=== PATIENT | male | born 1940 | race Caucasian/White ===

== ENCOUNTER 2016-04-06 11:02 | Inpatient (IN) | payer OTHER, MEDICARE ==
[2016-04-06] VITALS (10 sets, daily range): BP systolic 86–117; BP diastolic 46–78
[~2016-04-06] VITALS: Ht 188 cm; Wt 116.6 kg
[~2016-04-06 11:02] MED LIST: ADULT LOW DOSE81 M1 PO; ADVIL200 MG PO; ALDACTONE25 MG PO; AMBIEN5 MG PO; AUGMENTIN875 MG PO; B-50 COMPLEX1 EACH PO; BACTRIM,SEPT1 TABLET PO; CIPROFLOXACIN500 M1 PO; COUMADIN,JANTOVE4 MG PO; COUMADIN1 MG PO; COUMADIN2 MG PO; COUMADIN2.5 MG PO; COUMADIN3 MG PO; COZAAR50 MG PO; DAILY VALUE1 EACH PO; DOCUSATE SODIU100 MG PO; DULCOLAX10 MG PR; DUONEB 2.5-0.5 M3 ML AEROSOL; ENDOCET 5-3251 EACH PO; FAMOTIDINE20 MG PO; FINASTERIDE5 MG PO; FLEET ENEMA-AD118 ML PR; FUROSEMIDE40 MG PO; GINSENG250 MG PO; IPRATROPIU0.2 MG/1 M IH; KEFLEX500 MG PO; KENALOG,ARISTOC80 G1 TP; KENALOG,ARISTOC80 GM TP; LASIX40 MG PO; LEVOFLOXACIN500 MG PO; LO-DOSE ASPIRIN81 M1 PO; LOPRESSOR50 MG PO; LORAZEPAM0.5 MG PO; MORPHINE SULFAT15 MG PO; NIZORAL 2% CREA15 GM TP; NIZORAL SHAMPO120 ML TP; OXYCODONE HCL5 MG PO; PERCOCET 5/31 TABLET PO; PHILLIPS'400 MG/5 M PO; POLYETHYLENE GL17 GM PO; PROSCAR5 MG PO; PROVENTIL HFA6.7 GM IH; PROVENTIL,2.5 MG/3 M IH; ROXICODONE5 MG PO; SELSUN BLUE MO207 ML TP; SILVER SULFADIA50 GM TP; SIMVASTATIN5 MG; SINGULAIR10 MG PO; TYLENOL EXTRA500 MG PO; TYLENOL REGULA325 MG PO; VALIUM5 MG PO; VITAMIN B-122500 MCG SL; ZANTAC150 MG PO; ZESTRIL,PRINIVIL5 MG PO; ZOCOR40 MG PO; ZOLOFT50 MG PO; ZOLPIDEM TARTRAT5 MG PO
[2016-04-06 11:59] LABS: EOSINOPHIL (%) 0.2 % (0-5); HEMATOCRIT 37.6 % (38.0-50.0); IMMATURE GRANULOCYTE (%) 0.2 % (0.0-0.7); IMMATURE GRANULOCYTE COUNT 0.2 K/uL; LYMPHOCYTE COUNT 0.6 K/uL (1.0-2.8); MCV 88.3 FL (86-99); MEAN PLAT.VOLUME 10.4 uM^3 (9.0-12.4); MONOCYTE (%) 12.9 % (3-12); MONOCYTE COUNT 1.4 K/uL (0-0.8); NEUTROPHIL COUNT 8.5 K/uL (1.8-6.4); PLATELET COUNT 121 K/uL (156-360); RBC DIS.WIDTH-CV 15.1 % (11.8-14.6); RBC DIS.WIDTH-SD 48.1 % (39-53); RED BLOOD COUNT 4.26 M/uL (4.00-5.50); WHITE BLOOD COUNT 10.5 K/uL (4.1-10.2)
[2016-04-06 12:09] LABS: CHLORIDE 95 mEq/L (99-109); SODIUM 135 mEq/L (136-147)
[2016-04-06 12:09] LABS: ADD MIUA? YES; BILIRUBIN MODERATE; BLOOD LARGE; GLUCOSE (STRIP) NEGATIVE; KETONES NEGATIVE; LEUKOCYTES LARGE; NITRITE POSITIVE; PROTEIN (STRIP) 100; SPECIFIC GRAVITY 1.018 (1.000-1.030)
[2016-04-06 12:11] LABS: GLUCOSE 110 mg/dL (70-99)
[2016-04-06 12:13] LABS: ANION GAP 18 MEQ/L (2-14); TOTAL BILIRUBIN 6.9 mg/dL (0.0-1.0)
[2016-04-06 12:15] LABS: COLOR AMBER ((YELLOW))
[2016-04-06 12:15] LABS: ALKALINE PHOSPHATASE 129 IU/L (3-129); GFR ESTIMATE (CALCULATED) 58 mL/min/
[2016-04-06 12:16] LABS: UREA NITROGEN (BUN) 26 mg/dL (9-23)
[2016-04-06 12:18] LABS: LIPASE 14 U/L (1.0-51.0)
[2016-04-06 12:25] LABS: TROP-I INTERPRETATION INDETERMINATE; TROPONIN-I 0.45 ng/mL (0.0-0.30)
[2016-04-06 12:54] LABS: ICTOTEST POSITIVE
[2016-04-06 12:55] LABS: EPITHELIAL CELLS RARE; RED BLOOD CELLS 0-5 /HPF (0-5); SMALL ROUND CELL NONE SEEN; UCUL ADDED? YES; YEAST-LIKE CELL NONE SEEN
[2016-04-06] MEDS ORDERED: COUMADIN2 MG PO (13:07)
[2016-04-06] MEDS ORDERED: FLOMAX0.4 MG PO (13:07)
[2016-04-06] MEDS ORDERED: PERCOCET 5/31 TABLET PO (13:08)
[2016-04-06 13:14] LABS: BACTERIA 3+; CASTS PRESENT /LPF; MUCUS NONE SEEN
[2016-04-06 13:15] LABS: CRYSTALS NONE SEEN; PATHOLOGICAL CAST NONE SEEN
[2016-04-06] MEDS ORDERED: OCEAN NASAL 0.645 ML BOTH NARES (13:43)
[2016-04-06 15:51] LABS: INTER. NORMALIZED RATIO 2.2; PROTHROMBIN TIME 22.7 (9.2-11.2); PTT 38.5 (25-32)
[2016-04-06 16:06] LABS: MAGNESIUM 1.8 mg/dL (1.3-2.7)
[2016-04-06 16:13] LABS: DIRECT BILIRUBIN 3.9 mg/dL (0.0-0.3); URIC ACID 8.7 mg/dL (3.1-9.2)
[2016-04-06 17:02] LABS: METH RESISTANT S AUREUS PCR POSITIVE (NEGATIVE)
[2016-04-06 17:04] LABS: PROBE CHECK PASS
[2016-04-06 22:21] LABS: TROP-I INTERPRETATION INDETERMINATE; TROPONIN-I 0.41 ng/mL (0.0-0.30)
[2016-04-07] VITALS (12 sets, daily range): BP systolic 84–128; BP diastolic 51–82
[2016-04-07 05:54] LABS: EOSINOPHIL (%) 2.4 % (0-5); EOSINOPHIL COUNT 0.2 K/uL (0-0.3); HEMATOCRIT 34.1 % (38.0-50.0); IMMATURE GRANULOCYTE (%) 0.1 % (0.0-0.7); LYMPHOCYTE COUNT 0.9 K/uL (1.0-2.8); MCH 29.8 PG (29.0-34.0); MCHC 33.7 G/DL (30.0-36.0); MCV 88.3 FL (86-99); MEAN PLAT.VOLUME 10.5 uM^3 (9.0-12.4); MONOCYTE (%) 13.2 % (3-12); NEUTROPHIL (%) 72.2 % (45-76); NEUTROPHIL COUNT 5.5 K/uL (1.8-6.4); PLATELET COUNT 111 K/uL (156-360); RBC DIS.WIDTH-CV 15.5 % (11.8-14.6); RBC DIS.WIDTH-SD 49.8 % (39-53); RED BLOOD COUNT 3.86 M/uL (4.00-5.50); WHITE BLOOD COUNT 7.6 K/uL (4.1-10.2)
[2016-04-07 06:09] LABS: INTER. NORMALIZED RATIO 2.5; PROTHROMBIN TIME 26.2 (9.2-11.2)
[2016-04-07 06:22] LABS: TROP-I INTERPRETATION INDETERMINATE; TROPONIN-I 0.34 ng/mL (0.0-0.30)
[2016-04-07 06:24] LABS: ALKALINE PHOSPHATASE 94 IU/L (3-129); ANION GAP 13 MEQ/L (2-14); CHLORIDE 97 MEQ/L (99-109); DIRECT BILIRUBIN 3.6 mg/dL (0.0-0.3); GFR ESTIMATE (CALCULATED) 53 mL/min/; GLUCOSE 96 mg/dL (70-99); MAGNESIUM 1.6 mg/dl (1.3-2.7); POTASSIUM 2.9 MEQ/L (3.7-5.4); SAMPLE HEMOLYSIS CHECK 0; SAMPLE ICTERIC CHECK 2; SAMPLE LIPEMIA CHECK 0; SODIUM 136 MEQ/L (136-147); TOTAL BILIRUBIN 6.6 MG/DL (0.0-1.0); UREA NITROGEN (BUN) 27 mg/dL (9-23)
[2016-04-08 03:24] VITALS: BP 123/86
[2016-04-08 06:02] LABS: EOSINOPHIL (%) 2.6 % (0-5); EOSINOPHIL COUNT 0.2 K/uL (0-0.3); IMMATURE GRANULOCYTE (%) 0.3 % (0.0-0.7); LYMPHOCYTE COUNT 1.2 K/uL (1.0-2.8); MCH 29.3 PG (29.0-34.0); MCHC 33.1 G/DL (30.0-36.0); MCV 88.6 FL (86-99); MEAN PLAT.VOLUME 10.4 uM^3 (9.0-12.4); MONOCYTE (%) 14.4 % (3-12); MONOCYTE COUNT 1.3 K/uL (0-0.8); NEUTROPHIL (%) 69.3 % (45-76); NEUTROPHIL COUNT 6.4 K/uL (1.8-6.4); PLATELET COUNT 130 K/uL (156-360); RBC DIS.WIDTH-CV 15.4 % (11.8-14.6); RBC DIS.WIDTH-SD 49.4 % (39-53); WHITE BLOOD COUNT 9.2 K/uL (4.1-10.2)
[2016-04-08 06:37] LABS: INTER. NORMALIZED RATIO 2.5; PROTHROMBIN TIME 26.2 (9.2-11.2)
[2016-04-08 06:54] LABS: ALKALINE PHOSPHATASE 98 IU/L (3-129); ANION GAP 13 MEQ/L (2-14); CHLORIDE 98 MEQ/L (99-109); DIRECT BILIRUBIN 3.5 mg/dL (0.0-0.3); GFR ESTIMATE (CALCULATED) 45 mL/min/; GLUCOSE 98 mg/dL (70-99); POTASSIUM 3.4 MEQ/L (3.7-5.4); SAMPLE HEMOLYSIS CHECK 0; SAMPLE ICTERIC CHECK 2; SAMPLE LIPEMIA CHECK 0; SODIUM 137 MEQ/L (136-147); TOTAL BILIRUBIN 6.3 MG/DL (0.0-1.0); UREA NITROGEN (BUN) 33 mg/dL (9-23)
[2016-04-08 07:00] LABS: MAGNESIUM 1.9 mg/dl (1.3-2.7)
[2016-04-08 08:33] VITALS: BP 114/82
[2016-04-08 12:17] VITALS: BP 115/90
[2016-04-08 17:02] VITALS: BP 110/60
[2016-04-08 23:45] VITALS: BP 126/76
[2016-04-09 06:17] LABS: EOSINOPHIL (%) 4.1 % (0-5); EOSINOPHIL COUNT 0.3 K/uL (0-0.3); HEMATOCRIT 38.9 % (38.0-50.0); IMMATURE GRANULOCYTE (%) 0.4 % (0.0-0.7); INTER. NORMALIZED RATIO 2.5; LYMPHOCYTE COUNT 1.2 K/uL (1.0-2.8); MCH 29.9 PG (29.0-34.0); MCHC 33.7 G/DL (30.0-36.0); MCV 88.8 FL (86-99); MEAN PLAT.VOLUME 10.1 uM^3 (9.0-12.4); MONOCYTE (%) 15.9 % (3-12); MONOCYTE COUNT 1.3 K/uL (0-0.8); NEUTROPHIL (%) 65.1 % (45-76); NEUTROPHIL COUNT 5.4 K/uL (1.8-6.4); PLATELET COUNT 125 K/uL (156-360); PROTHROMBIN TIME 26.1 (9.2-11.2); RBC DIS.WIDTH-CV 15.5 % (11.8-14.6); RED BLOOD COUNT 4.38 M/uL (4.00-5.50); WHITE BLOOD COUNT 8.4 K/uL (4.1-10.2)
[2016-04-09 06:55] LABS: ANION GAP 10 MEQ/L (2-14); CHLORIDE 100 MEQ/L (99-109); GFR ESTIMATE (CALCULATED) 45 mL/min/; GLUCOSE 97 mg/dL (70-99); MAGNESIUM 1.8 mg/dl (1.3-2.7); POTASSIUM 3.6 MEQ/L (3.7-5.4); SAMPLE HEMOLYSIS CHECK 0; SAMPLE ICTERIC CHECK 1; SAMPLE LIPEMIA CHECK 0; SODIUM 140 MEQ/L (136-147); UREA NITROGEN (BUN) 35 mg/dL (9-23)
[2016-04-09 08:00] VITALS: BP 120/76
[2016-04-09 12:07] VITALS: BP 102/64
[2016-04-09 16:00] VITALS: BP 119/75
[2016-04-09 19:57] VITALS: BP 124/76
[2016-04-09 23:32] VITALS: BP 105/74
[2016-04-10] VITALS (7 sets, daily range): BP systolic 107–158; BP diastolic 62–86
[2016-04-10 06:58] LABS: INTER. NORMALIZED RATIO 2.6; PROTHROMBIN TIME 27.5 (9.2-11.2)
[2016-04-10 07:08] LABS: ANION GAP 9 MEQ/L (2-14); CHLORIDE 100 MEQ/L (99-109); GFR ESTIMATE (CALCULATED) 45 mL/min/; GLUCOSE 93 mg/dL (70-99); MAGNESIUM 1.9 mg/dl (1.3-2.7); POTASSIUM 3.7 MEQ/L (3.7-5.4); SAMPLE HEMOLYSIS CHECK 0; SAMPLE ICTERIC CHECK 1; SAMPLE LIPEMIA CHECK 0; SODIUM 140 MEQ/L (136-147); UREA NITROGEN (BUN) 35 mg/dL (9-23)
[2016-04-11] VITALS (8 sets, daily range): BP systolic 103–142; BP diastolic 66–80
[2016-04-11 06:50] LABS: INTER. NORMALIZED RATIO 2.6; PROTHROMBIN TIME 26.9 (9.2-11.2)
[2016-04-11 07:12] LABS: ANION GAP 9 MEQ/L (2-14); CHLORIDE 94 MEQ/L (99-109); GFR ESTIMATE (CALCULATED) 40 mL/min/; GLUCOSE 94 mg/dL (70-99); MAGNESIUM 1.9 mg/dl (1.3-2.7); SAMPLE HEMOLYSIS CHECK 0; SAMPLE ICTERIC CHECK 1; SAMPLE LIPEMIA CHECK 0; SODIUM 136 MEQ/L (136-147); UREA NITROGEN (BUN) 37 mg/dL (9-23)
[2016-04-12 03:00] VITALS: BP 115/60
[2016-04-12 07:15] LABS: INTER. NORMALIZED RATIO 2.4; PROTHROMBIN TIME 25.2 (9.2-11.2)
[2016-04-12 07:30] LABS: ANION GAP 9 MEQ/L (2-14); CHLORIDE 97 MEQ/L (99-109); GFR ESTIMATE (CALCULATED) 42 mL/min/; GLUCOSE 93 mg/dL (70-99); POTASSIUM 3.6 MEQ/L (3.7-5.4); SAMPLE HEMOLYSIS CHECK 0; SAMPLE ICTERIC CHECK 1; SAMPLE LIPEMIA CHECK 0; SODIUM 140 MEQ/L (136-147); UREA NITROGEN (BUN) 35 mg/dL (9-23)
[2016-04-12 08:00] VITALS: BP 140/65
[2016-04-12 11:29] VITALS: BP 104/62
[2016-04-12 14:12] LABS: ALKALINE PHOSPHATASE 108 IU/L (3-129); DIRECT BILIRUBIN 2.5 mg/dL (0.0-0.3)
[2016-04-12 14:16] LABS: TOTAL BILIRUBIN 4.3 MG/DL (0.0-1.0)
[2016-04-12 16:43] VITALS: BP 101/70
[2016-04-12 21:48] LABS: URIC ACID 8.1 mg/dL (3.1-9.2)
[2016-04-12 23:15] VITALS: BP 96/58
[2016-04-13 03:57] VITALS: BP 118/67
[2016-04-13 05:32] LABS: INTER. NORMALIZED RATIO 2.3
[2016-04-13 05:48] LABS: ANION GAP 8 MEQ/L (2-14); CHLORIDE 97 MEQ/L (99-109); GFR ESTIMATE (CALCULATED) 42 mL/min/; GLUCOSE 93 mg/dL (70-99); POTASSIUM 3.7 MEQ/L (3.7-5.4); SAMPLE HEMOLYSIS CHECK 0; SAMPLE ICTERIC CHECK 1; SAMPLE LIPEMIA CHECK 0; SODIUM 138 MEQ/L (136-147); UREA NITROGEN (BUN) 36 mg/dL (9-23)
[2016-04-13 06:03] LABS: ALKALINE PHOSPHATASE 105 IU/L (3-129); DIRECT BILIRUBIN 2.3 mg/dL (0.0-0.3)
[2016-04-13 08:48] VITALS: BP 104/59
[2016-04-13 12:12] VITALS: BP 111/80
[2016-04-13 16:00] VITALS: BP 99/61
[2016-04-14] VITALS: BP 101/60
[2016-04-14 04:30] VITALS: BP 116/67
[2016-04-14 05:13] LABS: INTER. NORMALIZED RATIO 2.1; PROTHROMBIN TIME 22.3 (9.2-11.2)
[2016-04-14 05:14] LABS: CHLORIDE 97 mEq/L (99-109); POTASSIUM 3.6 mEq/L (3.7-5.4); SODIUM 138 mEq/L (136-147)
[2016-04-14 05:17] LABS: GLUCOSE 98 mg/dL (70-99)
[2016-04-14 05:18] LABS: ANION GAP 10 MEQ/L (2-14)
[2016-04-14 05:20] LABS: GFR ESTIMATE (CALCULATED) 40 mL/min/
[2016-04-14 05:21] LABS: UREA NITROGEN (BUN) 36 mg/dL (9-23)
[2016-04-14 08:16] VITALS: BP 144/74
[2016-04-14] MEDS ORDERED: DUONEB 2.5-0.5 M3 ML AEROSOL (12:59)
[2016-04-14] MEDS ORDERED: SPIRONOLACTONE25 MG PO (12:59)
[2016-04-14] MEDS ORDERED: MIDODRINE HCL5 MG PO (12:59)
[2016-04-14] MEDS ORDERED: Zeasorb Antifungal T TP (13:01)
[2016-04-14] MEDS ORDERED: POLYETHYLENE GL17 GM PO (13:01)
[2016-04-14] MEDS ORDERED: BUMETANIDE1 MG PO (13:01)
[2016-04-14] MEDS ORDERED: MAG-OXIDE400 MG PO (13:01)
[2016-04-14] MEDS ORDERED: AMBIEN5 MG PO (13:02)
[2016-04-14] MEDS ORDERED: ENDOCET 5-3251 EACH PO (13:02)
[2016-04-14] MEDS ORDERED: LORAZEPAM0.5 MG PO (13:02)
[2016-04-14] MEDS ORDERED: K-DUR10 MEQ PO (14:40)
== END 2016-04-14 15:40 | DRG 698 ==
LOC: EME 11:02 → 5EAST 12:54 → EDOF 12:54 → 4WEST 12:54 → EDOF 13:40 → 4WEST 14:53 → 5EAST 04-07 19:31
PROVIDERS: Emergency Medicine; Family Medicine; Internal Medicine; Internal Medicine Gastroenterology; Internal Medicine Nephrology
DX: T83.511A Infection and inflammatory reaction due to indwelling urethral catheter, initial encounter (principal); N39.0 Urinary tract infection, site not specified; B96.20 Unspecified Escherichia coli [E. coli] as the cause of diseases classified elsewhere; A41.9 Sepsis, unspecified organism; I50.43 Acute on chronic combined systolic (congestive) and diastolic (congestive) heart failure; N17.9 Acute kidney failure, unspecified; Z16.10 Resistance to unspecified beta lactam antibiotics; R17 Unspecified jaundice; L03.119 Cellulitis of unspecified part of limb; E87.3 Alkalosis; T50.2X5A Adverse effect of carbonic-anhydrase inhibitors, benzothiadiazides and other diuretics, initial encounter; E87.6 Hypokalemia; N18.3 Chronic kidney disease, stage 3 (moderate); R33.9 Retention of urine, unspecified; I48.2 Chronic atrial fibrillation; I42.0 Dilated cardiomyopathy; Z68.41 Body mass index [BMI] 40.0-44.9, adult; J44.9 Chronic obstructive pulmonary disease, unspecified; K59.00 Constipation, unspecified; G47.33 Obstructive sleep apnea (adult) (pediatric); E66.01 Morbid (severe) obesity due to excess calories; Z95.810 Presence of automatic (implantable) cardiac defibrillator; I87.8 Other specified disorders of veins; I95.89 Other hypotension; M19.90 Unspecified osteoarthritis, unspecified site; E78.5 Hyperlipidemia, unspecified; I35.0 Nonrheumatic aortic (valve) stenosis; Z96.653 Presence of artificial knee joint, bilateral; Z87.891 Personal history of nicotine dependence; R31.29 Other microscopic hematuria; I89.0 Lymphedema, not elsewhere classified; G40.909 Epilepsy, unspecified, not intractable, without status epilepticus; G89.29 Other chronic pain; M54.9 Dorsalgia, unspecified; Z79.01 Long term (current) use of anticoagulants
CPT/HCPCS: 71010; 80048; 80053; 80069; 80076; 81003; 82248; 83010 90; 83605; 83690; 83735; 84484; 84550; 85025; 85027; 85610; 85730; 87040; 87077; 87081; 87086; 87186; 87641; 93975; 94640; 94799; 97530 GO; 97530 GP; 99202; 99281; 99285; J1335; J1940; J1956; J3475; J3480; J7030; J7050; P9047; S0028

== ENCOUNTER 2016-07-12 13:15 | Inpatient (IN) | payer OTHER, MEDICARE ==
[~2016-07-12] VITALS: Ht 190.5 cm; Wt 114.9 kg
[~2016-07-12 13:15] MED LIST changes: +BUMETANIDE1 MG PO; +FLOMAX0.4 MG PO; +K-DUR10 MEQ PO; +MAG-OXIDE400 MG PO; +MIDODRINE HCL5 MG PO; +OCEAN NASAL 0.645 ML BOTH NARES; +SPIRONOLACTONE25 MG PO; +Zeasorb Antifungal T TP
[2016-07-12 14:00] LABS: HEMATOCRIT 45.3 % (38.0-50.0); MCH 29.2 PG (29.0-34.0); MCHC 32.7 G/DL (30.0-36.0); MCV 89.3 FL (86-99); MEAN PLAT.VOLUME 9.9 uM^3 (9.0-12.4); PLATELET COUNT 160 K/uL (156-360); RBC DIS.WIDTH-CV 16.1 % (11.8-14.6); RBC DIS.WIDTH-SD 52.5 % (39-53); RED BLOOD COUNT 5.07 M/uL (4.00-5.50); WHITE BLOOD COUNT 7.3 K/uL (4.1-10.2)
[2016-07-12 14:12] LABS: INTER. NORMALIZED RATIO 3.1; PROTHROMBIN TIME 32.8 (9.2-11.2); PTT 36.9 (25-32)
[2016-07-12 14:16] LABS: CHLORIDE 102 mEq/L (99-109); POTASSIUM 4.1 mEq/L (3.7-5.4); SODIUM 136 mEq/L (136-147)
[2016-07-12 14:17] LABS: GLUCOSE 111 mg/dL (70-99)
[2016-07-12 14:19] LABS: ANION GAP 11 MEQ/L (2-14)
[2016-07-12 14:21] LABS: GFR ESTIMATE (CALCULATED) 45 mL/min/
[2016-07-12 14:22] LABS: UREA NITROGEN (BUN) 38 mg/dL (9-23)
[2016-07-12 14:32] LABS: TROP-I INTERPRETATION NEGATIVE; TROPONIN-I 0.11 ng/mL (0.0-0.30)
[2016-07-12 15:00] LABS: ADD MIUA? YES; BILIRUBIN NEGATIVE; BLOOD NEGATIVE; COLOR YELLOW ((YELLOW)); GLUCOSE (STRIP) NEGATIVE; KETONES NEGATIVE; LEUKOCYTES NEGATIVE; NITRITE POSITIVE; PROTEIN (STRIP) NEGATIVE; SPECIFIC GRAVITY 1.009 (1.000-1.030)
[2016-07-12 15:38] LABS: BACTERIA RARE /HPF; EPITHELIAL CELLS RARE /HPF; HYALINE CASTS 20-30 /LPF; MUCUS TRACE /LPF; RED BLOOD CELLS 0-5 /HPF (0-5); UCUL ADDED? NO; WHITE BLOOD CELLS 0-5 /HPF (0-5)
[2016-07-12] MEDS ORDERED: COUMADIN3 MG PO (18:44)
[2016-07-12] MEDS ORDERED: COUMADIN2 MG PO (18:45)
[2016-07-12] MEDS ORDERED: K-DUR10 MEQ PO (18:46)
[2016-07-12] MEDS ORDERED: BUMETANIDE1 MG PO (18:47)
[2016-07-12] MEDS ORDERED: LIPITOR20 MG PO (18:48)
[2016-07-12] MEDS ORDERED: METHOCARBAMOL750 MG PO (18:48)
[2016-07-12 21:25] VITALS: BP 103/57
[2016-07-12 21:42] LABS: TROP-I INTERPRETATION NEGATIVE; TROPONIN-I 0.13 ng/mL (0.0-0.30)
[2016-07-12 22:26] VITALS: BP 120/86
[2016-07-13 06:07] LABS: MCH 28.8 PG (29.0-34.0); MCHC 32.9 G/DL (30.0-36.0); MCV 87.6 FL (86-99); MEAN PLAT.VOLUME 10.1 uM^3 (9.0-12.4); PLATELET COUNT 137 K/uL (156-360); RBC DIS.WIDTH-CV 15.9 % (11.8-14.6); RBC DIS.WIDTH-SD 51.1 % (39-53); RED BLOOD COUNT 4.68 M/uL (4.00-5.50); WHITE BLOOD COUNT 8.3 K/uL (4.1-10.2)
[2016-07-13 06:30] LABS: ALKALINE PHOSPHATASE 123 IU/L (3-129); ANION GAP 13 MEQ/L (2-14); CHLORIDE 99 MEQ/L (99-109); GFR ESTIMATE (CALCULATED) 49 mL/min/; GLUCOSE 101 mg/dL (70-99); POTASSIUM 3.5 MEQ/L (3.7-5.4); SAMPLE HEMOLYSIS CHECK 0; SAMPLE ICTERIC CHECK 1; SAMPLE LIPEMIA CHECK 0; SODIUM 136 MEQ/L (136-147); TOTAL BILIRUBIN 3.6 MG/DL (0.0-1.0); TROP-I INTERPRETATION NEGATIVE; TROPONIN-I 0.14 ng/mL (0.0-0.30); UREA NITROGEN (BUN) 36 mg/dL (9-23)
[2016-07-13 08:00] VITALS: BP 103/77
[2016-07-13 10:33] LABS: INTER. NORMALIZED RATIO 3.1
[2016-07-13 11:40] VITALS: BP 111/71
[2016-07-13 15:59] VITALS: BP 107/69
[2016-07-13 18:44] VITALS: BP 109/64
[2016-07-13 22:42] VITALS: BP 108/60
[2016-07-14 03:33] VITALS: BP 122/72
[2016-07-14 06:26] LABS: ANION GAP 11 MEQ/L (2-14); CHLORIDE 98 MEQ/L (99-109); GFR ESTIMATE (CALCULATED) 49 mL/min/; GLUCOSE 99 mg/dL (70-99); POTASSIUM 3.3 MEQ/L (3.7-5.4); SAMPLE HEMOLYSIS CHECK 0; SAMPLE ICTERIC CHECK 1; SAMPLE LIPEMIA CHECK 0; SODIUM 135 MEQ/L (136-147); UREA NITROGEN (BUN) 31 mg/dL (9-23)
[2016-07-14 06:34] LABS: PROTHROMBIN TIME 31.7 (9.2-11.2)
[2016-07-14 07:57] VITALS: BP 122/84
[2016-07-14 11:15] VITALS: BP 108/68
[2016-07-14 15:03] VITALS: BP 129/80
[2016-07-14 19:13] VITALS: BP 116/81
[2016-07-14 22:43] VITALS: BP 109/61
[2016-07-15] VITALS (7 sets, daily range): BP systolic 97–121; BP diastolic 64–81
[2016-07-15 06:33] LABS: EOSINOPHIL (%) 3.3 % (0-5); EOSINOPHIL COUNT 0.3 K/uL (0-0.3); HEMATOCRIT 44.6 % (38.0-50.0); IMMATURE GRANULOCYTE (%) 0.2 % (0.0-0.7); INSTRUMENT ABS NEUTROPHIL CT 5.6 K/uL; LYMPHOCYTE COUNT 1.8 K/uL (1.0-2.8); MCH 29.3 PG (29.0-34.0); MCHC 33.4 G/DL (30.0-36.0); MCV 87.8 FL (86-99); MEAN PLAT.VOLUME 9.7 uM^3 (9.0-12.4); MONOCYTE (%) 16.4 % (3-12); MONOCYTE COUNT 1.5 K/uL (0-0.8); NEUTROPHIL (%) 60.7 % (45-76); NEUTROPHIL COUNT 5.6 K/uL (1.8-6.4); PLATELET COUNT 160 K/uL (156-360); RBC DIS.WIDTH-CV 15.7 % (11.8-14.6); RBC DIS.WIDTH-SD 50.4 % (39-53); RED BLOOD COUNT 5.08 M/uL (4.00-5.50); WHITE BLOOD COUNT 9.2 K/uL (4.1-10.2)
[2016-07-15 06:57] LABS: ANION GAP 12 MEQ/L (2-14); CHLORIDE 97 MEQ/L (99-109); GFR ESTIMATE (CALCULATED) 58 mL/min/; GLUCOSE 97 mg/dL (70-99); SAMPLE HEMOLYSIS CHECK 0; SAMPLE ICTERIC CHECK 1; SAMPLE LIPEMIA CHECK 0; SODIUM 135 MEQ/L (136-147); UREA NITROGEN (BUN) 31 mg/dL (9-23)
[2016-07-15 06:58] LABS: POTASSIUM 4.6 MEQ/L (3.7-5.4)
[2016-07-15 07:19] LABS: INTER. NORMALIZED RATIO 2.8; PROTHROMBIN TIME 29.6 (9.2-11.2)
[2016-07-16 03:21] VITALS: BP 109/75
[2016-07-16 07:00] LABS: EOSINOPHIL COUNT 0.4 K/uL (0-0.3); HEMATOCRIT 41.3 % (38.0-50.0); IMMATURE GRANULOCYTE (%) 0.2 % (0.0-0.7); INSTRUMENT ABS NEUTROPHIL CT 4.8 K/uL; LYMPHOCYTE COUNT 1.8 K/uL (1.0-2.8); MCH 28.9 PG (29.0-34.0); MCHC 33.4 G/DL (30.0-36.0); MCV 86.6 FL (86-99); MEAN PLAT.VOLUME 9.9 uM^3 (9.0-12.4); MONOCYTE (%) 15.8 % (3-12); MONOCYTE COUNT 1.3 K/uL (0-0.8); NEUTROPHIL (%) 57.1 % (45-76); NEUTROPHIL COUNT 4.8 K/uL (1.8-6.4); PLATELET COUNT 163 K/uL (156-360); RBC DIS.WIDTH-CV 15.6 % (11.8-14.6); RBC DIS.WIDTH-SD 49.4 % (39-53); RED BLOOD COUNT 4.77 M/uL (4.00-5.50); WHITE BLOOD COUNT 8.4 K/uL (4.1-10.2)
[2016-07-16 07:23] LABS: ANION GAP 12 MEQ/L (2-14); CHLORIDE 99 MEQ/L (99-109); GFR ESTIMATE (CALCULATED) 53 mL/min/; GLUCOSE 91 mg/dL (70-99); POTASSIUM 3.8 MEQ/L (3.7-5.4); SAMPLE HEMOLYSIS CHECK 0; SAMPLE ICTERIC CHECK 1; SAMPLE LIPEMIA CHECK 0; SODIUM 133 MEQ/L (136-147); UREA NITROGEN (BUN) 38 mg/dL (9-23)
[2016-07-16 07:46] VITALS: BP 111/85
[2016-07-16 07:54] LABS: INTER. NORMALIZED RATIO 2.8; PROTHROMBIN TIME 29.5 (9.2-11.2)
[2016-07-16 11:09] VITALS: BP 99/69
== END 2016-07-16 15:29 | disposition home health service (06) | DRG 291 ==
LOC: EME 13:15 → 5EAST 17:31 → EDOF 17:31 → 5EAST 20:47
PROVIDERS: Emergency Medicine; Family Medicine; Internal Medicine Cardiovascular Disease
DX: I13.0 Hypertensive heart and chronic kidney disease with heart failure and stage 1 through stage 4 chronic kidney disease, or unspecified chronic kidney disease (principal); I50.43 Acute on chronic combined systolic (congestive) and diastolic (congestive) heart failure; N18.9 Chronic kidney disease, unspecified; I48.1 Persistent atrial fibrillation; R17 Unspecified jaundice; G89.29 Other chronic pain; E78.5 Hyperlipidemia, unspecified; J44.9 Chronic obstructive pulmonary disease, unspecified; I42.0 Dilated cardiomyopathy; G47.33 Obstructive sleep apnea (adult) (pediatric); I87.2 Venous insufficiency (chronic) (peripheral); E66.9 Obesity, unspecified; E87.6 Hypokalemia; R73.9 Hyperglycemia, unspecified; Z95.810 Presence of automatic (implantable) cardiac defibrillator; Z87.891 Personal history of nicotine dependence; Z96.653 Presence of artificial knee joint, bilateral; Z68.31 Body mass index [BMI] 31.0-31.9, adult; Z79.01 Long term (current) use of anticoagulants; Z79.82 Long term (current) use of aspirin
CPT/HCPCS: 71020; 80048; 80053; 80076; 81003; 83880; 84484; 85025; 85027; 85610; 85730; 93005; 94640; 94640 76; 99202; 99281; 99285; J1940

== ENCOUNTER 2016-07-19 12:22 | Inpatient (IN) | payer OTHER, MEDICARE ==
[~2016-07-19] VITALS: Ht 190.5 cm; Wt 108.5 kg
[~2016-07-19 12:22] MED LIST changes: +LIPITOR20 MG PO; +METHOCARBAMOL750 MG PO
[2016-07-19 13:46] LABS: ADD MIUA? YES; BILIRUBIN NEGATIVE; BLOOD SMALL; COLOR YELLOW ((YELLOW)); GLUCOSE (STRIP) NEGATIVE; KETONES NEGATIVE; LEUKOCYTES NEGATIVE; NITRITE POSITIVE; PROTEIN (STRIP) NEGATIVE; SPECIFIC GRAVITY 1.012 (1.000-1.030); UROBILINOGEN 0.2 MG/DL (0.2-1.0)
[2016-07-19 14:04] LABS: BACTERIA RARE /HPF; EPITHELIAL CELLS RARE /HPF; HYALINE CASTS TNTC /LPF; MUCUS TRACE /LPF; RED BLOOD CELLS 0-5 /HPF (0-5); UCUL ADDED? NO; WHITE BLOOD CELLS 0-5 /HPF (0-5)
[2016-07-19 14:12] LABS: HEMATOCRIT 42.3 % (38.0-50.0); MCH 29.3 PG (29.0-34.0); MCHC 33.3 G/DL (30.0-36.0); MCV 87.8 FL (86-99); MEAN PLAT.VOLUME 10.4 uM^3 (9.0-12.4); PLATELET COUNT 171 K/uL (156-360); RBC DIS.WIDTH-CV 15.9 % (11.8-14.6); RED BLOOD COUNT 4.82 M/uL (4.00-5.50); WHITE BLOOD COUNT 8.5 K/uL (4.1-10.2)
[2016-07-19 14:22] LABS: CHLORIDE 101 mEq/L (99-109); SODIUM 133 mEq/L (136-147)
[2016-07-19 14:23] LABS: GLUCOSE 87 mg/dL (70-99)
[2016-07-19 14:25] LABS: ANION GAP 14 MEQ/L (2-14); POTASSIUM 4.9 mEq/L (3.7-5.4)
[2016-07-19 14:27] LABS: GFR ESTIMATE (CALCULATED) 53 mL/min/
[2016-07-19 14:28] LABS: UREA NITROGEN (BUN) 43 mg/dL (9-23)
[2016-07-19 14:46] LABS: INTER. NORMALIZED RATIO 3.8; PROTHROMBIN TIME 40.8 (9.2-11.2)
[2016-07-19] MEDS ORDERED: WARFARIN SODIUM3 MG PO (17:58)
[2016-07-19] MEDS ORDERED: MAGNESIUM400 M1 PO (17:58)
[2016-07-19] MEDS ORDERED: WARFARIN SODIUM1 MG PO (17:59)
[2016-07-19 20:21] VITALS: BP 117/81
[2016-07-19 23:56] VITALS: BP 103/72
[2016-07-20 07:03] LABS: HEMATOCRIT 39.1 % (38.0-50.0); MCH 29.4 PG (29.0-34.0); MCHC 33.5 G/DL (30.0-36.0); MCV 87.7 FL (86-99); MEAN PLAT.VOLUME 9.8 uM^3 (9.0-12.4); PLATELET COUNT 141 K/uL (156-360); RBC DIS.WIDTH-CV 15.9 % (11.8-14.6); RBC DIS.WIDTH-SD 50.3 % (39-53); RED BLOOD COUNT 4.46 M/uL (4.00-5.50); WHITE BLOOD COUNT 8.6 K/uL (4.1-10.2)
[2016-07-20 07:19] LABS: ANION GAP 11 MEQ/L (2-14); CHLORIDE 98 MEQ/L (99-109); GFR ESTIMATE (CALCULATED) 49 mL/min/; GLUCOSE 97 mg/dL (70-99); SAMPLE HEMOLYSIS CHECK 0; SAMPLE ICTERIC CHECK 2; SAMPLE LIPEMIA CHECK 0; SODIUM 133 MEQ/L (136-147); UREA NITROGEN (BUN) 44 mg/dL (9-23)
[2016-07-20 08:03] LABS: INTER. NORMALIZED RATIO 4.5
[2016-07-20 09:43] VITALS: BP 110/79
[2016-07-20 15:50] VITALS: BP 94/64
[2016-07-20 22:27] VITALS: BP 120/78
[2016-07-21 06:18] LABS: EOSINOPHIL (%) 2.5 % (0-5); EOSINOPHIL COUNT 0.3 K/uL (0-0.3); HEMATOCRIT 39.7 % (38.0-50.0); IMMATURE GRANULOCYTE (%) 0.6 % (0.0-0.7); IMMATURE GRANULOCYTE COUNT 0.1 K/uL; INSTRUMENT ABS NEUTROPHIL CT 7.3 K/uL; LYMPHOCYTE COUNT 1.2 K/uL (1.0-2.8); MCH 29.2 PG (29.0-34.0); MCHC 33.5 G/DL (30.0-36.0); MCV 87.3 FL (86-99); MEAN PLAT.VOLUME 9.7 uM^3 (9.0-12.4); MONOCYTE (%) 15.1 % (3-12); MONOCYTE COUNT 1.6 K/uL (0-0.8); NEUTROPHIL (%) 70.1 % (45-76); NEUTROPHIL COUNT 7.3 K/uL (1.8-6.4); PLATELET COUNT 164 K/uL (156-360); RBC DIS.WIDTH-CV 15.8 % (11.8-14.6); RBC DIS.WIDTH-SD 50.3 % (39-53); RED BLOOD COUNT 4.55 M/uL (4.00-5.50); WHITE BLOOD COUNT 10.4 K/uL (4.1-10.2)
[2016-07-21 06:39] LABS: ANION GAP 12 MEQ/L (2-14); CHLORIDE 98 MEQ/L (99-109); GFR ESTIMATE (CALCULATED) 45 mL/min/; GLUCOSE 104 mg/dL (70-99); POTASSIUM 3.7 MEQ/L (3.7-5.4); SAMPLE HEMOLYSIS CHECK 0; SAMPLE ICTERIC CHECK 2; SAMPLE LIPEMIA CHECK 0; SODIUM 134 MEQ/L (136-147); UREA NITROGEN (BUN) 43 mg/dL (9-23)
[2016-07-21 06:48] LABS: PROTHROMBIN TIME 47.5 (9.2-11.2)
[2016-07-21 07:03] LABS: INTER. NORMALIZED RATIO 4.5
[2016-07-21 07:30] VITALS: BP 108/54
[2016-07-21 16:44] VITALS: BP 109/60
[2016-07-22 01:00] VITALS: BP 126/70
[2016-07-22 07:30] VITALS: BP 102/69
[2016-07-22 08:38] LABS: EOSINOPHIL (%) 2.3 % (0-5); EOSINOPHIL COUNT 0.2 K/uL (0-0.3); HEMATOCRIT 39.5 % (38.0-50.0); IMMATURE GRANULOCYTE (%) 0.4 % (0.0-0.7); INSTRUMENT ABS NEUTROPHIL CT 6.2 K/uL; LYMPHOCYTE COUNT 1.3 K/uL (1.0-2.8); MCH 29.4 PG (29.0-34.0); MCHC 33.2 G/DL (30.0-36.0); MCV 88.6 FL (86-99); MEAN PLAT.VOLUME 9.8 uM^3 (9.0-12.4); MONOCYTE (%) 17.3 % (3-12); MONOCYTE COUNT 1.6 K/uL (0-0.8); NEUTROPHIL (%) 66.2 % (45-76); NEUTROPHIL COUNT 6.2 K/uL (1.8-6.4); PLATELET COUNT 156 K/uL (156-360); RBC DIS.WIDTH-CV 16.2 % (11.8-14.6); RED BLOOD COUNT 4.46 M/uL (4.00-5.50); WHITE BLOOD COUNT 9.4 K/uL (4.1-10.2)
[2016-07-22 09:00] LABS: ANION GAP 10 MEQ/L (2-14); CHLORIDE 95 MEQ/L (99-109); GFR ESTIMATE (CALCULATED) 53 mL/min/; GLUCOSE 113 mg/dL (70-99); POTASSIUM 3.8 MEQ/L (3.7-5.4); SAMPLE HEMOLYSIS CHECK 0; SAMPLE ICTERIC CHECK 2; SAMPLE LIPEMIA CHECK 0; SODIUM 133 MEQ/L (136-147); UREA NITROGEN (BUN) 36 mg/dL (9-23)
[2016-07-22 13:13] VITALS: BP 90/62
[2016-07-22 13:32] LABS: PROTHROMBIN TIME 31.4 (9.2-11.2)
[2016-07-22 15:47] VITALS: BP 99/69
[2016-07-22 23:13] VITALS: BP 85/57
[2016-07-23 00:55] VITALS: BP 100/68
[2016-07-23 06:08] LABS: EOSINOPHIL (%) 3.8 % (0-5); EOSINOPHIL COUNT 0.3 K/uL (0-0.3); HEMATOCRIT 38.3 % (38.0-50.0); IMMATURE GRANULOCYTE (%) 0.2 % (0.0-0.7); INSTRUMENT ABS NEUTROPHIL CT 5.2 K/uL; LYMPHOCYTE COUNT 1.4 K/uL (1.0-2.8); MCHC 33.2 G/DL (30.0-36.0); MCV 87.4 FL (86-99); MEAN PLAT.VOLUME 9.7 uM^3 (9.0-12.4); MONOCYTE (%) 17.9 % (3-12); MONOCYTE COUNT 1.5 K/uL (0-0.8); NEUTROPHIL (%) 61.1 % (45-76); NEUTROPHIL COUNT 5.2 K/uL (1.8-6.4); PLATELET COUNT 153 K/uL (156-360); RBC DIS.WIDTH-SD 51.2 % (39-53); RED BLOOD COUNT 4.38 M/uL (4.00-5.50); WHITE BLOOD COUNT 8.5 K/uL (4.1-10.2)
[2016-07-23 06:28] LABS: ANION GAP 9 MEQ/L (2-14); CHLORIDE 96 MEQ/L (99-109); GFR ESTIMATE (CALCULATED) 49 mL/min/; GLUCOSE 102 mg/dL (70-99); POTASSIUM 3.9 MEQ/L (3.7-5.4); SAMPLE HEMOLYSIS CHECK 0; SAMPLE ICTERIC CHECK 1; SAMPLE LIPEMIA CHECK 0; SODIUM 132 MEQ/L (136-147); UREA NITROGEN (BUN) 38 mg/dL (9-23)
[2016-07-23 06:50] VITALS: BP 102/73; BP 102/83
[2016-07-23 07:07] LABS: INTER. NORMALIZED RATIO 2.8; PROTHROMBIN TIME 29.5 (9.2-11.2)
[2016-07-23 15:15] VITALS: BP 96/62
[2016-07-23 22:26] VITALS: BP 108/70
[2016-07-24 06:15] LABS: EOSINOPHIL (%) 3.2 % (0-5); EOSINOPHIL COUNT 0.3 K/uL (0-0.3); HEMATOCRIT 41.7 % (38.0-50.0); IMMATURE GRANULOCYTE (%) 0.6 % (0.0-0.7); IMMATURE GRANULOCYTE COUNT 0.1 K/uL; INSTRUMENT ABS NEUTROPHIL CT 4.8 K/uL; LYMPHOCYTE COUNT 1.7 K/uL (1.0-2.8); MCH 29.2 PG (29.0-34.0); MCHC 33.1 G/DL (30.0-36.0); MCV 88.2 FL (86-99); MEAN PLAT.VOLUME 9.9 uM^3 (9.0-12.4); MONOCYTE (%) 16.3 % (3-12); MONOCYTE COUNT 1.3 K/uL (0-0.8); NEUTROPHIL (%) 59.1 % (45-76); NEUTROPHIL COUNT 4.8 K/uL (1.8-6.4); PLATELET COUNT 155 K/uL (156-360); RBC DIS.WIDTH-CV 16.3 % (11.8-14.6); RED BLOOD COUNT 4.73 M/uL (4.00-5.50); WHITE BLOOD COUNT 8.1 K/uL (4.1-10.2)
[2016-07-24 06:43] LABS: ANION GAP 9 MEQ/L (2-14); CHLORIDE 97 MEQ/L (99-109); GFR ESTIMATE (CALCULATED) 45 mL/min/; GLUCOSE 99 mg/dL (70-99); POTASSIUM 4.1 MEQ/L (3.7-5.4); SAMPLE HEMOLYSIS CHECK 0; SAMPLE ICTERIC CHECK 1; SAMPLE LIPEMIA CHECK 0; SODIUM 132 MEQ/L (136-147); UREA NITROGEN (BUN) 42 mg/dL (9-23)
[2016-07-24 06:47] LABS: INTER. NORMALIZED RATIO 2.6
[2016-07-24 09:29] VITALS: BP 96/74
[2016-07-24 16:09] LABS: ANION GAP 12 MEQ/L (2-14); CHLORIDE 95 MEQ/L (99-109); POTASSIUM 3.9 MEQ/L (3.7-5.4); SAMPLE HEMOLYSIS CHECK 0; SAMPLE ICTERIC CHECK 1; SAMPLE LIPEMIA CHECK 0; SODIUM 130 MEQ/L (136-147)
[2016-07-24 16:15] LABS: ALKALINE PHOSPHATASE 103 IU/L (3-129); GFR ESTIMATE (CALCULATED) 49 mL/min/; GLUCOSE 116 mg/dL (70-99); UREA NITROGEN (BUN) 45 mg/dL (9-23)
[2016-07-24 17:13] VITALS: BP 94/68
[2016-07-24 22:32] VITALS: BP 92/72
[2016-07-25 06:01] LABS: EOSINOPHIL (%) 2.7 % (0-5); EOSINOPHIL COUNT 0.3 K/uL (0-0.3); HEMATOCRIT 41.4 % (38.0-50.0); IMMATURE GRANULOCYTE (%) 0.3 % (0.0-0.7); INSTRUMENT ABS NEUTROPHIL CT 5.9 K/uL; LYMPHOCYTE COUNT 1.7 K/uL (1.0-2.8); MCH 29.4 PG (29.0-34.0); MCHC 33.3 G/DL (30.0-36.0); MCV 88.3 FL (86-99); MEAN PLAT.VOLUME 9.8 uM^3 (9.0-12.4); MONOCYTE (%) 15.6 % (3-12); MONOCYTE COUNT 1.5 K/uL (0-0.8); NEUTROPHIL (%) 62.6 % (45-76); NEUTROPHIL COUNT 5.9 K/uL (1.8-6.4); PLATELET COUNT 162 K/uL (156-360); RBC DIS.WIDTH-CV 16.4 % (11.8-14.6); RBC DIS.WIDTH-SD 52.5 % (39-53); RED BLOOD COUNT 4.69 M/uL (4.00-5.50); WHITE BLOOD COUNT 9.4 K/uL (4.1-10.2)
[2016-07-25 06:45] LABS: INTER. NORMALIZED RATIO 2.7; PROTHROMBIN TIME 28.1 (9.2-11.2)
[2016-07-25 07:00] LABS: ANION GAP 11 MEQ/L (2-14); CHLORIDE 94 MEQ/L (99-109); GFR ESTIMATE (CALCULATED) 42 mL/min/; GLUCOSE 97 mg/dL (70-99); POTASSIUM 3.9 MEQ/L (3.7-5.4); SAMPLE HEMOLYSIS CHECK 0; SAMPLE ICTERIC CHECK 1; SAMPLE LIPEMIA CHECK 0; SODIUM 130 MEQ/L (136-147); UREA NITROGEN (BUN) 45 mg/dL (9-23)
[2016-07-25 07:04] VITALS: BP 126/72
[2016-07-25 15:18] VITALS: BP 138/76
[2016-07-25 23:46] VITALS: BP 140/78
[2016-07-26 04:54] LABS: EOSINOPHIL (%) 2.2 % (0-5); EOSINOPHIL COUNT 0.2 K/uL (0-0.3); HEMATOCRIT 41.3 % (38.0-50.0); IMMATURE GRANULOCYTE (%) 0.4 % (0.0-0.7); INSTRUMENT ABS NEUTROPHIL CT 6.1 K/uL; LYMPHOCYTE COUNT 1.6 K/uL (1.0-2.8); MCHC 33.7 G/DL (30.0-36.0); MCV 86.2 FL (86-99); MEAN PLAT.VOLUME 10.4 uM^3 (9.0-12.4); MONOCYTE (%) 14.8 % (3-12); MONOCYTE COUNT 1.4 K/uL (0-0.8); NEUTROPHIL (%) 65.3 % (45-76); NEUTROPHIL COUNT 6.1 K/uL (1.8-6.4); PLATELET COUNT 169 K/uL (156-360); RBC DIS.WIDTH-CV 16.3 % (11.8-14.6); RED BLOOD COUNT 4.79 M/uL (4.00-5.50); WHITE BLOOD COUNT 9.4 K/uL (4.1-10.2)
[2016-07-26 05:01] LABS: INTER. NORMALIZED RATIO 3.6; PROTHROMBIN TIME 38.4 (9.2-11.2)
[2016-07-26 05:02] LABS: CHLORIDE 95 mEq/L (99-109); POTASSIUM 3.5 mEq/L (3.7-5.4); SODIUM 130 mEq/L (136-147)
[2016-07-26 05:04] LABS: GLUCOSE 99 mg/dL (70-99)
[2016-07-26 05:05] LABS: ANION GAP 15 MEQ/L (2-14)
[2016-07-26 05:08] LABS: GFR ESTIMATE (CALCULATED) 40 mL/min/
[2016-07-26 05:09] LABS: UREA NITROGEN (BUN) 51 mg/dL (9-23)
[2016-07-26 06:45] VITALS: BP 128/62
[2016-07-26 15:20] VITALS: BP 100/67
[2016-07-26 23:33] VITALS: BP 132/84
[2016-07-27 06:56] LABS: EOSINOPHIL (%) 2.2 % (0-5); EOSINOPHIL COUNT 0.2 K/uL (0-0.3); HEMATOCRIT 41.9 % (38.0-50.0); IMMATURE GRANULOCYTE (%) 0.5 % (0.0-0.7); IMMATURE GRANULOCYTE COUNT 0.1 K/uL; INSTRUMENT ABS NEUTROPHIL CT 6.9 K/uL; LYMPHOCYTE COUNT 1.4 K/uL (1.0-2.8); MCH 29.1 PG (29.0-34.0); MCHC 33.2 G/DL (30.0-36.0); MCV 87.7 FL (86-99); MEAN PLAT.VOLUME 10.4 uM^3 (9.0-12.4); MONOCYTE (%) 14.6 % (3-12); MONOCYTE COUNT 1.5 K/uL (0-0.8); NEUTROPHIL (%) 68.9 % (45-76); NEUTROPHIL COUNT 6.9 K/uL (1.8-6.4); PLATELET COUNT 171 K/uL (156-360); RBC DIS.WIDTH-CV 16.7 % (11.8-14.6); RBC DIS.WIDTH-SD 51.8 % (39-53); RED BLOOD COUNT 4.78 M/uL (4.00-5.50)
[2016-07-27 07:10] LABS: INTER. NORMALIZED RATIO 3.6; PROTHROMBIN TIME 38.5 (9.2-11.2)
[2016-07-27 07:17] LABS: ALKALINE PHOSPHATASE 90 IU/L (3-129); ANION GAP 12 MEQ/L (2-14); CHLORIDE 91 MEQ/L (99-109); GFR ESTIMATE (CALCULATED) 35 mL/min/; GLUCOSE 107 mg/dL (70-99); POTASSIUM 3.3 MEQ/L (3.7-5.4); SAMPLE HEMOLYSIS CHECK 0; SAMPLE ICTERIC CHECK 1; SAMPLE LIPEMIA CHECK 0; SODIUM 129 MEQ/L (136-147); TOTAL BILIRUBIN 4.3 MG/DL (0.0-1.0); UREA NITROGEN (BUN) 57 mg/dL (9-23)
[2016-07-27 07:35] VITALS: BP 81/48
[2016-07-27 12:51] VITALS: BP 82/52
[2016-07-27 17:11] VITALS: BP 85/56
[2016-07-27 23:00] VITALS: BP 116/62
[2016-07-28 06:36] LABS: INTER. NORMALIZED RATIO 3.1; PROTHROMBIN TIME 32.7 (9.2-11.2)
[2016-07-28 06:43] LABS: ANION GAP 9 MEQ/L (2-14); CHLORIDE 91 MEQ/L (99-109); GFR ESTIMATE (CALCULATED) 33 mL/min/; GLUCOSE 86 mg/dL (70-99); MAGNESIUM 2.2 mg/dl (1.3-2.7); POTASSIUM 3.6 MEQ/L (3.7-5.4); SAMPLE HEMOLYSIS CHECK 0; SAMPLE ICTERIC CHECK 1; SAMPLE LIPEMIA CHECK 0; SODIUM 129 MEQ/L (136-147); UREA NITROGEN (BUN) 59 mg/dL (9-23)
[2016-07-28 09:37] VITALS: BP 138/61
[2016-07-28 17:13] VITALS: BP 102/70
[2016-07-28 23:59] VITALS: BP 110/60
[2016-07-29 07:50] LABS: INTER. NORMALIZED RATIO 2.5; PROTHROMBIN TIME 26.7 (9.2-11.2)
[2016-07-29 08:48] LABS: ANION GAP 9 MEQ/L (2-14); CHLORIDE 91 MEQ/L (99-109); GFR ESTIMATE (CALCULATED) 40 mL/min/; SAMPLE HEMOLYSIS CHECK 1; SAMPLE ICTERIC CHECK 1; SAMPLE LIPEMIA CHECK 0; SODIUM 129 MEQ/L (136-147); UREA NITROGEN (BUN) 54 mg/dL (9-23)
[2016-07-29 08:51] LABS: GLUCOSE 112 mg/dL (70-99); POTASSIUM 4.2 MEQ/L (3.7-5.4)
[2016-07-29 10:23] VITALS: BP 99/74
[2016-07-29 23:50] VITALS: BP 98/66
[2016-07-30 07:14] LABS: EOSINOPHIL (%) 1.7 % (0-5); EOSINOPHIL COUNT 0.2 K/uL (0-0.3); HEMATOCRIT 40.1 % (38.0-50.0); IMMATURE GRANULOCYTE (%) 0.6 % (0.0-0.7); IMMATURE GRANULOCYTE COUNT 0.1 K/uL; INSTRUMENT ABS NEUTROPHIL CT 6.6 K/uL; LYMPHOCYTE COUNT 1.6 K/uL (1.0-2.8); MCH 28.9 PG (29.0-34.0); MCHC 33.2 G/DL (30.0-36.0); MCV 87.2 FL (86-99); MEAN PLAT.VOLUME 10.1 uM^3 (9.0-12.4); MONOCYTE (%) 15.5 % (3-12); MONOCYTE COUNT 1.6 K/uL (0-0.8); NEUTROPHIL (%) 65.8 % (45-76); NEUTROPHIL COUNT 6.6 K/uL (1.8-6.4); PLATELET COUNT 144 K/uL (156-360); RBC DIS.WIDTH-CV 16.8 % (11.8-14.6); RBC DIS.WIDTH-SD 52.5 % (39-53)
[2016-07-30 07:38] LABS: INTER. NORMALIZED RATIO 2.4; PROTHROMBIN TIME 24.7 (9.2-11.2)
[2016-07-30 07:40] LABS: ANION GAP 8 MEQ/L (2-14); CHLORIDE 91 MEQ/L (99-109); GFR ESTIMATE (CALCULATED) 42 mL/min/; GLUCOSE 98 mg/dL (70-99); POTASSIUM 3.7 MEQ/L (3.7-5.4); SAMPLE HEMOLYSIS CHECK 0; SAMPLE ICTERIC CHECK 1; SAMPLE LIPEMIA CHECK 0; SODIUM 127 MEQ/L (136-147); UREA NITROGEN (BUN) 56 mg/dL (9-23)
[2016-07-30 08:52] VITALS: BP 88/56
[2016-07-30 16:10] VITALS: BP 109/80
[2016-07-30 22:45] VITALS: BP 94/54
[2016-07-31 06:39] LABS: EOSINOPHIL (%) 2.1 % (0-5); EOSINOPHIL COUNT 0.2 K/uL (0-0.3); HEMATOCRIT 38.2 % (38.0-50.0); IMMATURE GRANULOCYTE (%) 0.4 % (0.0-0.7); LYMPHOCYTE COUNT 1.6 K/uL (1.0-2.8); MCH 29.1 PG (29.0-34.0); MCHC 33.5 G/DL (30.0-36.0); MCV 86.8 FL (86-99); MEAN PLAT.VOLUME 9.5 uM^3 (9.0-12.4); MONOCYTE COUNT 1.5 K/uL (0-0.8); NEUTROPHIL (%) 64.3 % (45-76); PLATELET COUNT 131 K/uL (156-360); RBC DIS.WIDTH-CV 16.4 % (11.8-14.6); RBC DIS.WIDTH-SD 51.2 % (39-53); WHITE BLOOD COUNT 9.4 K/uL (4.1-10.2)
[2016-07-31 06:44] LABS: INTER. NORMALIZED RATIO 2.2; PROTHROMBIN TIME 23.4 (9.2-11.2)
[2016-07-31 07:02] LABS: ANION GAP 9 MEQ/L (2-14); CHLORIDE 91 MEQ/L (99-109); GFR ESTIMATE (CALCULATED) 42 mL/min/; GLUCOSE 91 mg/dL (70-99); POTASSIUM 3.6 MEQ/L (3.7-5.4); SAMPLE HEMOLYSIS CHECK 0; SAMPLE ICTERIC CHECK 1; SAMPLE LIPEMIA CHECK 0; SODIUM 130 MEQ/L (136-147); UREA NITROGEN (BUN) 56 mg/dL (9-23)
[2016-07-31 09:06] VITALS: BP 109/66
[2016-07-31 15:15] VITALS: BP 97/63
[2016-07-31 16:35] VITALS: BP 92/55
[2016-07-31 23:47] VITALS: BP 87/55
[2016-08-01 06:43] LABS: PROTHROMBIN TIME 21.3 (9.2-11.2)
[2016-08-01 06:54] LABS: ANION GAP 9 MEQ/L (2-14); CHLORIDE 92 MEQ/L (99-109); GFR ESTIMATE (CALCULATED) 40 mL/min/; GLUCOSE 94 mg/dL (70-99); POTASSIUM 3.6 MEQ/L (3.7-5.4); SAMPLE HEMOLYSIS CHECK 0; SAMPLE ICTERIC CHECK 1; SAMPLE LIPEMIA CHECK 0; SODIUM 131 MEQ/L (136-147); UREA NITROGEN (BUN) 54 mg/dL (9-23)
[2016-08-01 08:40] VITALS: BP 89/53
[2016-08-01 12:55] VITALS: BP 88/62
[2016-08-01 15:44] VITALS: BP 88/52
[2016-08-02 00:08] VITALS: BP 91/58
[2016-08-02 07:16] LABS: EOSINOPHIL (%) 3.6 % (0-5); EOSINOPHIL COUNT 0.3 K/uL (0-0.3); HEMATOCRIT 37.8 % (38.0-50.0); IMMATURE GRANULOCYTE (%) 0.4 % (0.0-0.7); INSTRUMENT ABS NEUTROPHIL CT 4.9 K/uL; LYMPHOCYTE COUNT 1.7 K/uL (1.0-2.8); MCH 29.1 PG (29.0-34.0); MCHC 33.3 G/DL (30.0-36.0); MCV 87.3 FL (86-99); MEAN PLAT.VOLUME 10.6 uM^3 (9.0-12.4); MONOCYTE (%) 15.8 % (3-12); MONOCYTE COUNT 1.3 K/uL (0-0.8); NEUTROPHIL (%) 59.4 % (45-76); NEUTROPHIL COUNT 4.9 K/uL (1.8-6.4); PLATELET COUNT 129 K/uL (156-360); RBC DIS.WIDTH-CV 16.3 % (11.8-14.6); RBC DIS.WIDTH-SD 52.4 % (39-53); RED BLOOD COUNT 4.33 M/uL (4.00-5.50); WHITE BLOOD COUNT 8.3 K/uL (4.1-10.2)
[2016-08-02 07:25] VITALS: BP 88/60
[2016-08-02 07:27] LABS: PROTHROMBIN TIME 20.7 (9.2-11.2)
[2016-08-02 07:38] LABS: ANION GAP 8 MEQ/L (2-14); CHLORIDE 94 MEQ/L (99-109); GFR ESTIMATE (CALCULATED) 42 mL/min/; GLUCOSE 84 mg/dL (70-99); POTASSIUM 3.7 MEQ/L (3.7-5.4); SAMPLE HEMOLYSIS CHECK 0; SAMPLE ICTERIC CHECK 1; SAMPLE LIPEMIA CHECK 0; SODIUM 131 MEQ/L (136-147); UREA NITROGEN (BUN) 51 mg/dL (9-23)
[2016-08-02 09:49] VITALS: BP 88/60
[2016-08-02 15:38] VITALS: BP 85/61
[2016-08-02 16:18] LABS: URIC ACID 8.3 mg/dL (3.1-9.2)
[2016-08-02 21:31] LABS: ADD MIUA? NO; BILIRUBIN NEGATIVE; BLOOD NEGATIVE; COLOR YELLOW ((YELLOW)); GLUCOSE (STRIP) NEGATIVE; KETONES NEGATIVE; LEUKOCYTES NEGATIVE; NITRITE NEGATIVE; PROTEIN (STRIP) NEGATIVE
[2016-08-02 23:07] VITALS: BP 92/53
[2016-08-03 06:15] LABS: EOSINOPHIL (%) 3.5 % (0-5); EOSINOPHIL COUNT 0.3 K/uL (0-0.3); HEMATOCRIT 38.1 % (38.0-50.0); IMMATURE GRANULOCYTE (%) 0.4 % (0.0-0.7); INSTRUMENT ABS NEUTROPHIL CT 5.1 K/uL; LYMPHOCYTE COUNT 1.6 K/uL (1.0-2.8); MCH 28.8 PG (29.0-34.0); MCHC 32.8 G/DL (30.0-36.0); MCV 87.8 FL (86-99); MEAN PLAT.VOLUME 10.4 uM^3 (9.0-12.4); MONOCYTE COUNT 1.3 K/uL (0-0.8); NEUTROPHIL (%) 60.5 % (45-76); NEUTROPHIL COUNT 5.1 K/uL (1.8-6.4); PLATELET COUNT 123 K/uL (156-360); RBC DIS.WIDTH-CV 16.3 % (11.8-14.6); RBC DIS.WIDTH-SD 52.3 % (39-53); RED BLOOD COUNT 4.34 M/uL (4.00-5.50); WHITE BLOOD COUNT 8.4 K/uL (4.1-10.2)
[2016-08-03 06:31] LABS: INTER. NORMALIZED RATIO 1.9; PROTHROMBIN TIME 19.8 (9.2-11.2)
[2016-08-03 06:38] LABS: ANION GAP 8 MEQ/L (2-14); CHLORIDE 93 MEQ/L (99-109); GFR ESTIMATE (CALCULATED) 42 mL/min/; GLUCOSE 89 mg/dL (70-99); SAMPLE HEMOLYSIS CHECK 0; SAMPLE ICTERIC CHECK 1; SAMPLE LIPEMIA CHECK 0; SODIUM 130 MEQ/L (136-147); UREA NITROGEN (BUN) 50 mg/dL (9-23)
[2016-08-03 07:44] VITALS: BP 97/68
[2016-08-03 08:22] LABS: INTACT PARATHYROID HORMONE 91 pg/mL (10-69)
[2016-08-03 17:04] VITALS: BP 88/56
[2016-08-03 20:00] VITALS: BP 110/60
[2016-08-03 22:57] VITALS: BP 112/64
[2016-08-04 07:36] LABS: ANION GAP 6 MEQ/L (2-14); CHLORIDE 95 MEQ/L (99-109); GFR ESTIMATE (CALCULATED) 49 mL/min/; GLUCOSE 92 mg/dL (70-99); POTASSIUM 3.6 MEQ/L (3.7-5.4); SAMPLE HEMOLYSIS CHECK 0; SAMPLE ICTERIC CHECK 1; SAMPLE LIPEMIA CHECK 0; SODIUM 132 MEQ/L (136-147); UREA NITROGEN (BUN) 45 mg/dL (9-23); URIC ACID 7.3 mg/dL (3.1-9.2)
[2016-08-04 07:37] LABS: INTER. NORMALIZED RATIO 1.9; PROTHROMBIN TIME 19.4 (9.2-11.2)
[2016-08-04 08:24] VITALS: BP 117/57
[2016-08-04 15:32] VITALS: BP 94/59
[2016-08-04 23:34] VITALS: BP 118/69
[2016-08-05 05:11] LABS: CHLORIDE 98 mEq/L (99-109); GLUCOSE 95 mg/dL (70-99); SODIUM 133 mEq/L (136-147)
[2016-08-05 05:25] LABS: GFR ESTIMATE (CALCULATED) 53 mL/min/; UREA NITROGEN (BUN) 42 mg/dL (9-23)
[2016-08-05 07:05] VITALS: BP 84/58
[2016-08-05 09:40] LABS: INTER. NORMALIZED RATIO 1.9; PROTHROMBIN TIME 19.3 (9.2-11.2)
[2016-08-05 15:30] VITALS: BP 108/74
[2016-08-06 00:03] VITALS: BP 98/71
[2016-08-06 08:34] LABS: INTER. NORMALIZED RATIO 1.8; PROTHROMBIN TIME 19.1 (9.2-11.2)
[2016-08-06 08:35] LABS: ANION GAP 7 MEQ/L (2-14); CHLORIDE 97 MEQ/L (99-109); GFR ESTIMATE (CALCULATED) 53 mL/min/; GLUCOSE 85 mg/dL (70-99); POTASSIUM 3.9 MEQ/L (3.7-5.4); SAMPLE HEMOLYSIS CHECK 0; SAMPLE ICTERIC CHECK 1; SAMPLE LIPEMIA CHECK 0; SODIUM 134 MEQ/L (136-147); UREA NITROGEN (BUN) 39 mg/dL (9-23)
[2016-08-06 17:41] VITALS: BP 97/56
[2016-08-07 00:44] VITALS: BP 118/66
[2016-08-07 06:15] LABS: EOSINOPHIL (%) 3.8 % (0-5); EOSINOPHIL COUNT 0.3 K/uL (0-0.3); IMMATURE GRANULOCYTE (%) 0.3 % (0.0-0.7); INSTRUMENT ABS NEUTROPHIL CT 4.3 K/uL; LYMPHOCYTE COUNT 1.5 K/uL (1.0-2.8); MCH 29.3 PG (29.0-34.0); MCHC 33.2 G/DL (30.0-36.0); MCV 88.1 FL (86-99); MEAN PLAT.VOLUME 9.6 uM^3 (9.0-12.4); MONOCYTE (%) 16.6 % (3-12); MONOCYTE COUNT 1.2 K/uL (0-0.8); NEUTROPHIL (%) 58.9 % (45-76); NEUTROPHIL COUNT 4.3 K/uL (1.8-6.4); PLATELET COUNT 124 K/uL (156-360); RBC DIS.WIDTH-CV 16.3 % (11.8-14.6); RBC DIS.WIDTH-SD 52.7 % (39-53); WHITE BLOOD COUNT 7.3 K/uL (4.1-10.2)
[2016-08-07 06:28] LABS: INTER. NORMALIZED RATIO 1.8; PROTHROMBIN TIME 18.9 (9.2-11.2)
[2016-08-07 06:41] LABS: ANION GAP 9 MEQ/L (2-14); CHLORIDE 96 MEQ/L (99-109); GFR ESTIMATE (CALCULATED) 58 mL/min/; GLUCOSE 91 mg/dL (70-99); POTASSIUM 3.4 MEQ/L (3.7-5.4); SAMPLE HEMOLYSIS CHECK 0; SAMPLE ICTERIC CHECK 1; SAMPLE LIPEMIA CHECK 0; SODIUM 133 MEQ/L (136-147); UREA NITROGEN (BUN) 43 mg/dL (9-23)
[2016-08-07 07:59] VITALS: BP 101/58
[2016-08-07 11:19] VITALS: BP 12/60
[2016-08-07 16:37] VITALS: BP 99/56
[2016-08-07 22:52] VITALS: BP 97/68
[2016-08-08 07:14] LABS: INTER. NORMALIZED RATIO 1.7; PROTHROMBIN TIME 17.7 (9.2-11.2)
[2016-08-08 07:36] LABS: ANION GAP 11 MEQ/L (2-14); CHLORIDE 91 MEQ/L (99-109); GFR ESTIMATE (CALCULATED) 58 mL/min/; GLUCOSE 87 mg/dL (70-99); POTASSIUM 3.5 MEQ/L (3.7-5.4); SAMPLE HEMOLYSIS CHECK 0; SAMPLE ICTERIC CHECK 1; SAMPLE LIPEMIA CHECK 0; SODIUM 134 MEQ/L (136-147); UREA NITROGEN (BUN) 43 mg/dL (9-23); URIC ACID 7.3 mg/dL (3.1-9.2)
[2016-08-08 07:45] VITALS: BP 101/59
[2016-08-08 15:55] VITALS: BP 94/57
[2016-08-08 23:25] VITALS: BP 98/69
[2016-08-09 06:44] LABS: INTER. NORMALIZED RATIO 1.8; PROTHROMBIN TIME 18.2 (9.2-11.2)
[2016-08-09 06:48] VITALS: BP 115/71
[2016-08-09 07:16] LABS: ANION GAP 10 MEQ/L (2-14); CHLORIDE 92 MEQ/L (99-109); GFR ESTIMATE (CALCULATED) 49 mL/min/; GLUCOSE 86 mg/dL (70-99); MAGNESIUM 1.9 mg/dl (1.3-2.7); POTASSIUM 3.9 MEQ/L (3.7-5.4); SAMPLE HEMOLYSIS CHECK 0; SAMPLE ICTERIC CHECK 1; SAMPLE LIPEMIA CHECK 0; SODIUM 134 MEQ/L (136-147); UREA NITROGEN (BUN) 43 mg/dL (9-23)
[2016-08-09 15:11] VITALS: BP 103/58
[2016-08-09 23:19] VITALS: BP 109/61
[2016-08-10 07:14] LABS: ANION GAP 10 MEQ/L (2-14); CHLORIDE 94 MEQ/L (99-109); GFR ESTIMATE (CALCULATED) 53 mL/min/; GLUCOSE 88 mg/dL (70-99); POTASSIUM 3.7 MEQ/L (3.7-5.4); SAMPLE HEMOLYSIS CHECK 0; SAMPLE ICTERIC CHECK 1; SAMPLE LIPEMIA CHECK 0; SODIUM 133 MEQ/L (136-147); UREA NITROGEN (BUN) 47 mg/dL (9-23)
[2016-08-10 07:22] LABS: INTER. NORMALIZED RATIO 1.8; PROTHROMBIN TIME 18.4 (9.2-11.2)
[2016-08-10 08:12] VITALS: BP 80/60
[2016-08-10 10:22] VITALS: BP 94/58
[2016-08-10 16:02] VITALS: BP 82/58
[2016-08-10 16:35] VITALS: BP 98/64
[2016-08-10 18:21] VITALS: BP 102/60
[2016-08-10 23:22] VITALS: BP 89/54
[2016-08-11 03:00] VITALS: BP 102/63
[2016-08-11 05:51] LABS: PROTHROMBIN TIME 20.5 (9.2-11.2)
[2016-08-11 06:04] LABS: ANION GAP 8 MEQ/L (2-14); CHLORIDE 96 MEQ/L (99-109); GFR ESTIMATE (CALCULATED) 53 mL/min/; GLUCOSE 99 mg/dL (70-99); POTASSIUM 3.5 MEQ/L (3.7-5.4); SAMPLE HEMOLYSIS CHECK 0; SAMPLE ICTERIC CHECK 0; SAMPLE LIPEMIA CHECK 0; SODIUM 135 MEQ/L (136-147); UREA NITROGEN (BUN) 44 mg/dL (9-23)
[2016-08-11 07:49] VITALS: BP 102/60
[2016-08-11] MEDS ORDERED: K-DUR20 MEQ PO (12:36)
[2016-08-11] MEDS ORDERED: VITAMIN D-32000 UNI2 PO (12:36)
[2016-08-11] MEDS ORDERED: BUMETANIDE1 MG PO (12:36)
[2016-08-11] MEDS ORDERED: HYDROCHLOROTHIA25 MG PO (12:36)
[2016-08-11 14:48] VITALS: BP 120/57
== END 2016-08-11 17:52 | DRG 292 ==
LOC: EME 12:22 → EDOF 14:56 → 5EAST 14:56
PROVIDERS: Emergency Medicine; Family Medicine; Internal Medicine; Internal Medicine Nephrology; Nurse Practitioner Family; Physician Assistant Medical
DX: I50.23 Acute on chronic systolic (congestive) heart failure (principal); N39.0 Urinary tract infection, site not specified; I42.9 Cardiomyopathy, unspecified; I42.0 Dilated cardiomyopathy; I48.1 Persistent atrial fibrillation; R33.9 Retention of urine, unspecified; I35.0 Nonrheumatic aortic (valve) stenosis; I50.9 Heart failure, unspecified; R26.2 Difficulty in walking, not elsewhere classified; I10 Essential (primary) hypertension; I48.2 Chronic atrial fibrillation; G89.29 Other chronic pain; M19.90 Unspecified osteoarthritis, unspecified site; E78.5 Hyperlipidemia, unspecified; J44.9 Chronic obstructive pulmonary disease, unspecified; G47.33 Obstructive sleep apnea (adult) (pediatric); E87.1 Hypo-osmolality and hyponatremia; Z87.891 Personal history of nicotine dependence; I50.41 Acute combined systolic (congestive) and diastolic (congestive) heart failure; E66.9 Obesity, unspecified; R79.89 Other specified abnormal findings of blood chemistry; N50.89 Other specified disorders of the male genital organs; E87.8 Other disorders of electrolyte and fluid balance, not elsewhere classified; I95.89 Other hypotension; I87.8 Other specified disorders of veins; N48.89 Other specified disorders of penis; N18.3 Chronic kidney disease, stage 3 (moderate); E87.6 Hypokalemia; I89.0 Lymphedema, not elsewhere classified; R60.1 Generalized edema; E87.70 Fluid overload, unspecified; Z96.653 Presence of artificial knee joint, bilateral; Z79.01 Long term (current) use of anticoagulants; Z68.32 Body mass index [BMI] 32.0-32.9, adult
CPT/HCPCS: 71020; 80048; 80053; 80069; 81003; 82140; 82306; 83735; 83880; 83970; 84443; 84550; 85025; 85027; 85610; 87077; 87086; 87186; 87493; 93306; 94640; 94640 76; 94760; 94799; 97530 GO; 97530 GP; 99202; 99281; 99285; J1940; J1956; J2405; J2543; J7050

== ENCOUNTER 2016-09-19 14:25 | Inpatient (IN) | payer OTHER, MEDICARE ==
[~2016-09-19] VITALS: Ht 190.5 cm; Wt 108.6 kg
[~2016-09-19 14:25] MED LIST changes: +HYDROCHLOROTHIA25 MG PO; +K-DUR20 MEQ PO; +MAGNESIUM400 M1 PO; +VITAMIN D-32000 UNI2 PO; +WARFARIN SODIUM1 MG PO; +WARFARIN SODIUM3 MG PO
[2016-09-19 16:28] LABS: MCH 28.3 PG (29.0-34.0); MCHC 33.8 G/DL (30.0-36.0); MCV 83.9 FL (86-99); MEAN PLAT.VOLUME 10.9 uM^3 (9.0-12.4); PLATELET COUNT 120 K/uL (156-360); RBC DIS.WIDTH-CV 15.3 % (11.8-14.6); RBC DIS.WIDTH-SD 47.2 % (39-53); RED BLOOD COUNT 4.77 M/uL (4.00-5.50); WHITE BLOOD COUNT 11.2 K/uL (4.1-10.2)
[2016-09-19 16:42] LABS: CHLORIDE 93 mEq/L (99-109); POTASSIUM 3.8 mEq/L (3.7-5.4); SODIUM 128 mEq/L (136-147)
[2016-09-19 16:45] LABS: GLUCOSE 115 mg/dL (70-99)
[2016-09-19 16:46] LABS: ANION GAP 12 MEQ/L (2-14)
[2016-09-19 16:47] LABS: TOTAL BILIRUBIN 4.5 mg/dL (0.0-1.0)
[2016-09-19 16:48] LABS: ALKALINE PHOSPHATASE 115 IU/L (3-129); GFR ESTIMATE (CALCULATED) 45 mL/min/
[2016-09-19 16:49] LABS: UREA NITROGEN (BUN) 46 mg/dL (9-23)
[2016-09-19 16:51] LABS: TROP-I INTERPRETATION NEGATIVE; TROPONIN-I 0.19 ng/mL (0.0-0.30)
[2016-09-19 16:52] LABS: LIPASE 12 U/L (1.0-51.0)
[2016-09-19 17:36] LABS: ADD MIUA? NO; BILIRUBIN NEGATIVE; BLOOD NEGATIVE; COLOR YELLOW ((YELLOW)); GLUCOSE (STRIP) NEGATIVE; KETONES NEGATIVE; LEUKOCYTES NEGATIVE; NITRITE NEGATIVE; PROTEIN (STRIP) NEGATIVE; SPECIFIC GRAVITY 1.009 (1.000-1.030); UCUL ADDED? NO; UROBILINOGEN 0.2 MG/DL (0.2-1.0)
[2016-09-19] MEDS ORDERED: AMOX TR-K CLV1 EAC4 PO (18:31)
[2016-09-19] MEDS ORDERED: WARFARIN SODIUM2 MG PO (18:37)
[2016-09-19] MEDS ORDERED: BUMEX1 MG PO (18:39)
[2016-09-19] MEDS ORDERED: K-DUR20 MEQ PO (18:39)
[2016-09-19] MEDS ORDERED: HYDROCHLOROTHIA25 MG PO (18:40)
[2016-09-19 21:42] LABS: PTT 32.6 (25-32)
[2016-09-19 22:05] LABS: INTER. NORMALIZED RATIO 1.8; PROTHROMBIN TIME 18.8 (9.2-11.2)
[2016-09-20 00:35] LABS: TROP-I INTERPRETATION NEGATIVE; TROPONIN-I 0.15 ng/mL (0.0-0.30)
[2016-09-20 05:48] LABS: EOSINOPHIL (%) 1.7 % (0-5); EOSINOPHIL COUNT 0.2 K/uL (0-0.3); HEMATOCRIT 38.1 % (38.0-50.0); IMMATURE GRANULOCYTE (%) 0.6 % (0.0-0.7); IMMATURE GRANULOCYTE COUNT 0.1 K/uL; INSTRUMENT ABS NEUTROPHIL CT 6.8 K/uL; LYMPHOCYTE COUNT 0.9 K/uL (1.0-2.8); MCH 28.4 PG (29.0-34.0); MCHC 33.9 G/DL (30.0-36.0); MCV 83.9 FL (86-99); MEAN PLAT.VOLUME 9.7 uM^3 (9.0-12.4); MONOCYTE (%) 16.1 % (3-12); MONOCYTE COUNT 1.5 K/uL (0-0.8); NEUTROPHIL (%) 71.5 % (45-76); NEUTROPHIL COUNT 6.8 K/uL (1.8-6.4); PLATELET COUNT 99 K/uL (156-360); RBC DIS.WIDTH-CV 15.5 % (11.8-14.6); RBC DIS.WIDTH-SD 47.1 % (39-53); RED BLOOD COUNT 4.54 M/uL (4.00-5.50); WHITE BLOOD COUNT 9.5 K/uL (4.1-10.2)
[2016-09-20 05:55] LABS: CHLORIDE 97 mEq/L (99-109); POTASSIUM 3.2 mEq/L (3.7-5.4); SODIUM 132 mEq/L (136-147)
[2016-09-20 05:56] LABS: MAGNESIUM 2.1 mg/dL (1.3-2.7)
[2016-09-20 05:57] LABS: GLUCOSE 104 mg/dL (70-99)
[2016-09-20 05:59] LABS: ANION GAP 12 MEQ/L (2-14)
[2016-09-20 06:00] LABS: TROP-I INTERPRETATION NEGATIVE; TROPONIN-I 0.14 ng/mL (0.0-0.30)
[2016-09-20 06:01] LABS: ALKALINE PHOSPHATASE 104 IU/L (3-129); GFR ESTIMATE (CALCULATED) 49 mL/min/
[2016-09-20 06:02] LABS: UREA NITROGEN (BUN) 46 mg/dL (9-23)
[2016-09-20 08:14] VITALS: BP 138/74
[2016-09-20 10:11] LABS: INTER. NORMALIZED RATIO 1.9; PROTHROMBIN TIME 19.4 (9.2-11.2)
[2016-09-20 12:33] VITALS: BP 112/78
[2016-09-20 17:01] VITALS: BP 109/66
[2016-09-20 20:00] VITALS: BP 98/73
[2016-09-20 21:24] VITALS: BP 92/60
[2016-09-21] VITALS (7 sets, daily range): BP systolic 90–123; BP diastolic 58–83
[2016-09-21 06:06] LABS: INTER. NORMALIZED RATIO 2.3; PROTHROMBIN TIME 23.9 (9.2-11.2)
[2016-09-21 06:20] LABS: ANION GAP 10 MEQ/L (2-14); CHLORIDE 97 MEQ/L (99-109); GFR ESTIMATE (CALCULATED) 57 mL/min/; GLUCOSE 98 mg/dL (70-99); POTASSIUM 3.1 MEQ/L (3.7-5.4); SAMPLE HEMOLYSIS CHECK 0; SAMPLE ICTERIC CHECK 1; SAMPLE LIPEMIA CHECK 0; SODIUM 131 MEQ/L (136-147); UREA NITROGEN (BUN) 45 mg/dL (9-23)
[2016-09-21 07:40] LABS: METH RESISTANT S AUREUS PCR POSITIVE (NEGATIVE)
[2016-09-21 07:47] LABS: PROBE CHECK PASS
[2016-09-22] VITALS (7 sets, daily range): BP systolic 91–105; BP diastolic 59–71
[2016-09-22 05:48] LABS: INTER. NORMALIZED RATIO 3.1; PROTHROMBIN TIME 32.3 (9.2-11.2)
[2016-09-22 06:15] LABS: ANION GAP 10 MEQ/L (2-14); CHLORIDE 98 MEQ/L (99-109); GFR ESTIMATE (CALCULATED) 53 mL/min/; GLUCOSE 91 mg/dL (70-99); POTASSIUM 3.6 MEQ/L (3.7-5.4); SAMPLE HEMOLYSIS CHECK 0; SAMPLE ICTERIC CHECK 0; SAMPLE LIPEMIA CHECK 0; SODIUM 134 MEQ/L (136-147); UREA NITROGEN (BUN) 45 mg/dL (9-23)
[2016-09-22 09:56] LABS: MAGNESIUM 1.9 mg/dl (1.3-2.7)
[2016-09-23 04:10] VITALS: BP 93/60
[2016-09-23 06:44] LABS: INTER. NORMALIZED RATIO 3.1; PROTHROMBIN TIME 33.2 (9.2-11.2)
[2016-09-23 06:45] LABS: EOSINOPHIL (%) 5.1 % (0-5); EOSINOPHIL COUNT 0.3 K/uL (0-0.3); HEMATOCRIT 41.8 % (38.0-50.0); IMMATURE GRANULOCYTE (%) 0.3 % (0.0-0.7); INSTRUMENT ABS NEUTROPHIL CT 3.5 K/uL; LYMPHOCYTE COUNT 1.4 K/uL (1.0-2.8); MCH 27.8 PG (29.0-34.0); MCHC 32.5 G/DL (30.0-36.0); MCV 85.5 FL (86-99); MONOCYTE (%) 18.7 % (3-12); MONOCYTE COUNT 1.2 K/uL (0-0.8); NEUTROPHIL (%) 53.8 % (45-76); NEUTROPHIL COUNT 3.5 K/uL (1.8-6.4); RBC DIS.WIDTH-CV 15.5 % (11.8-14.6); RBC DIS.WIDTH-SD 48.1 % (39-53); RED BLOOD COUNT 4.89 M/uL (4.00-5.50); WHITE BLOOD COUNT 6.5 K/uL (4.1-10.2)
[2016-09-23 06:47] LABS: PLATELET COUNT 155 K/uL (156-360)
[2016-09-23 07:01] LABS: ALKALINE PHOSPHATASE 117 IU/L (3-129); ANION GAP 10 MEQ/L (2-14); CHLORIDE 98 MEQ/L (99-109); GFR ESTIMATE (CALCULATED) > 59 mL/min/; GLUCOSE 79 mg/dL (70-99); POTASSIUM 3.6 MEQ/L (3.7-5.4); SAMPLE HEMOLYSIS CHECK 0; SAMPLE ICTERIC CHECK 0; SAMPLE LIPEMIA CHECK 0; SODIUM 134 MEQ/L (136-147); TOTAL BILIRUBIN 2.7 MG/DL (0.0-1.0); UREA NITROGEN (BUN) 42 mg/dL (9-23)
[2016-09-23 07:01] LABS: ANION GAP 9 MEQ/L (2-14); CHLORIDE 99 MEQ/L (99-109); GFR ESTIMATE (CALCULATED) > 59 mL/min/; GLUCOSE 78 mg/dL (70-99); POTASSIUM 3.7 MEQ/L (3.7-5.4); SAMPLE HEMOLYSIS CHECK 0; SAMPLE ICTERIC CHECK 0; SAMPLE LIPEMIA CHECK 0; SODIUM 135 MEQ/L (136-147); UREA NITROGEN (BUN) 39 mg/dL (9-23)
[2016-09-23 07:54] VITALS: BP 102/57
[2016-09-23] MEDS ORDERED: DOCUSATE SODIU100 MG PO (08:03)
[2016-09-23] MEDS ORDERED: LISINOPRIL2.5 MG PO (08:03)
[2016-09-23 12:00] VITALS: BP 88/64
[2016-09-23] MEDS ORDERED: TYLENOL EXTRA500 MG PO ×2 (16:52→16:53)
[2016-09-23] MEDS ORDERED: PRAVACHOL80 MG PO (16:52)
[2016-09-23] MEDS ORDERED: PEPCID20 MG PO (16:53)
== END 2016-09-23 14:05 | DRG 683 ==
LOC: EME 14:25 → EDOF 22:46 → 4SOUTH 22:46 → EDOF 09-20 07:47 → 4SOUTH 09-20 07:54
PROVIDERS: Internal Medicine; Nurse Practitioner Adult Health; Pediatrics; Physician Assistant; Physician Assistant Medical
DX: N17.9 Acute kidney failure, unspecified (principal); I95.9 Hypotension, unspecified; I13.0 Hypertensive heart and chronic kidney disease with heart failure and stage 1 through stage 4 chronic kidney disease, or unspecified chronic kidney disease; I42.0 Dilated cardiomyopathy; E85.9 Amyloidosis, unspecified; I50.42 Chronic combined systolic (congestive) and diastolic (congestive) heart failure; I95.89 Other hypotension; E87.6 Hypokalemia; D69.6 Thrombocytopenia, unspecified; E87.1 Hypo-osmolality and hyponatremia; E55.9 Vitamin D deficiency, unspecified; E78.5 Hyperlipidemia, unspecified; E86.1 Hypovolemia; E87.8 Other disorders of electrolyte and fluid balance, not elsewhere classified; G47.33 Obstructive sleep apnea (adult) (pediatric); N18.3 Chronic kidney disease, stage 3 (moderate); I35.0 Nonrheumatic aortic (valve) stenosis; I48.2 Chronic atrial fibrillation; Z79.01 Long term (current) use of anticoagulants; I87.2 Venous insufficiency (chronic) (peripheral); I87.8 Other specified disorders of veins; I89.0 Lymphedema, not elsewhere classified; J44.9 Chronic obstructive pulmonary disease, unspecified; J61 Pneumoconiosis due to asbestos and other mineral fibers; K74.60 Unspecified cirrhosis of liver; L03.115 Cellulitis of right lower limb; N25.81 Secondary hyperparathyroidism of renal origin; N39.0 Urinary tract infection, site not specified; N50.89 Other specified disorders of the male genital organs; R29.6 Repeated falls; T50.2X5A Adverse effect of carbonic-anhydrase inhibitors, benzothiadiazides and other diuretics, initial encounter; W07.XXXA Fall from chair, initial encounter; Z80.42 Family history of malignant neoplasm of prostate; Z82.49 Family history of ischemic heart disease and other diseases of the circulatory system; Z83.3 Family history of diabetes mellitus; Z85.828 Personal history of other malignant neoplasm of skin; Z87.891 Personal history of nicotine dependence; Z91.19 Patient's noncompliance with other medical treatment and regimen; Z95.810 Presence of automatic (implantable) cardiac defibrillator; Z96.649 Presence of unspecified artificial hip joint; Z96.653 Presence of artificial knee joint, bilateral; G89.29 Other chronic pain; M19.90 Unspecified osteoarthritis, unspecified site; M25.561 Pain in right knee; R26.81 Unsteadiness on feet; R63.0 Anorexia; K57.30 Diverticulosis of large intestine without perforation or abscess without bleeding; R18.8 Other ascites; K80.20 Calculus of gallbladder without cholecystitis without obstruction
CPT/HCPCS: 71020; 73502; 73564; 73590; 74176; 80048; 80053; 81003; 82140; 83605; 83690; 83735; 84100; 84484; 85025; 85027; 85610; 85730; 87040; 87641; 93005; 93971; 97530 GO; 97530 GP; 99202; 99281; 99285; J0295; J2543; J3370; J7030; J7050

== ENCOUNTER 2016-09-23 10:31 | Inpatient (IN) | payer OTHER, MEDICARE ==
[~2016-09-23] VITALS: Ht 190.5 cm; Wt 122.5 kg
[~2016-09-23 10:31] MED LIST changes: +AMOX TR-K CLV1 EAC4 PO; +BUMEX1 MG PO; +LISINOPRIL2.5 MG PO; +WARFARIN SODIUM2 MG PO
[2016-09-23 15:01] VITALS: BP 180/91
[2016-09-23] MEDS ORDERED: PRAVACHOL80 MG PO (16:52)
[2016-09-23] MEDS ORDERED: TYLENOL EXTRA500 MG PO ×2 (16:52→16:53)
[2016-09-23] MEDS ORDERED: PEPCID20 MG PO (16:53)
[2016-09-23 23:49] VITALS: BP 100/64
[2016-09-24 05:41] VITALS: BP 91/59
[2016-09-24 05:58] VITALS: BP 98/62
[2016-09-24 06:36] LABS: HEMATOCRIT 41.6 % (38.0-50.0); MCH 27.8 PG (29.0-34.0); MCHC 32.7 G/DL (30.0-36.0); MCV 85.1 FL (86-99); MEAN PLAT.VOLUME 10.1 uM^3 (9.0-12.4); PLATELET COUNT 152 K/uL (156-360); RBC DIS.WIDTH-CV 15.5 % (11.8-14.6); RBC DIS.WIDTH-SD 48.3 % (39-53); RED BLOOD COUNT 4.89 M/uL (4.00-5.50)
[2016-09-24 06:47] LABS: PROTHROMBIN TIME 31.5 (9.2-11.2)
[2016-09-24 07:06] LABS: ALKALINE PHOSPHATASE 118 IU/L (3-129); ANION GAP 8 MEQ/L (2-14); CHLORIDE 100 MEQ/L (99-109); GFR ESTIMATE (CALCULATED) > 59 mL/min/; GLUCOSE 88 mg/dL (70-99); SAMPLE HEMOLYSIS CHECK 0; SAMPLE ICTERIC CHECK 1; SAMPLE LIPEMIA CHECK 0; SODIUM 135 MEQ/L (136-147); TOTAL BILIRUBIN 2.9 MG/DL (0.0-1.0); UREA NITROGEN (BUN) 39 mg/dL (9-23)
[2016-09-24 15:07] VITALS: BP 90/62
[2016-09-24 15:57] LABS: CREATINE KINASE 15 IU/L (1-294); TOTAL CK 15 IU/L (1-294)
[2016-09-24 18:56] LABS: CK-MB 1.6 ng/mL (0.0-4.9)
[2016-09-25 05:14] VITALS: BP 114/68
[2016-09-25 11:01] LABS: INTER. NORMALIZED RATIO 2.7; PROTHROMBIN TIME 28.5 (9.2-11.2)
[2016-09-25 15:08] VITALS: BP 87/64
[2016-09-26 05:04] VITALS: BP 82/64
[2016-09-26 12:57] LABS: INTER. NORMALIZED RATIO 2.5; PROTHROMBIN TIME 26.1 (9.2-11.2)
[2016-09-26 15:50] VITALS: BP 99/60
[2016-09-27 05:34] VITALS: BP 98/55
[2016-09-27 07:12] LABS: INTER. NORMALIZED RATIO 2.5; PROTHROMBIN TIME 26.1 (9.2-11.2)
[2016-09-27 15:40] VITALS: BP 94/60
[2016-09-28 05:56] VITALS: BP 118/62
[2016-09-28 06:12] LABS: INTER. NORMALIZED RATIO 2.4; PROTHROMBIN TIME 25.4 (9.2-11.2)
[2016-09-28 15:39] VITALS: BP 84/53
[2016-09-29 05:20] VITALS: BP 100/61
[2016-09-29 06:20] LABS: INTER. NORMALIZED RATIO 2.3; PROTHROMBIN TIME 24.2 (9.2-11.2)
[2016-09-29 16:23] VITALS: BP 106/53
[2016-09-30 05:13] VITALS: BP 104/66
[2016-09-30 09:07] LABS: EOSINOPHIL (%) 2.2 % (0-5); EOSINOPHIL COUNT 0.1 K/uL (0-0.3); HEMATOCRIT 43.2 % (38.0-50.0); IMMATURE GRANULOCYTE (%) 0.5 % (0.0-0.7); INSTRUMENT ABS NEUTROPHIL CT 4.4 K/uL; LYMPHOCYTE COUNT 0.9 K/uL (1.0-2.8); MCH 27.7 PG (29.0-34.0); MCHC 32.2 G/DL (30.0-36.0); MCV 86.1 FL (86-99); MEAN PLAT.VOLUME 10.4 uM^3 (9.0-12.4); MONOCYTE (%) 14.6 % (3-12); MONOCYTE COUNT 0.9 K/uL (0-0.8); NEUTROPHIL (%) 68.3 % (45-76); NEUTROPHIL COUNT 4.4 K/uL (1.8-6.4); PLATELET COUNT 141 K/uL (156-360); RBC DIS.WIDTH-SD 49.4 % (39-53); RED BLOOD COUNT 5.02 M/uL (4.00-5.50); WHITE BLOOD COUNT 6.5 K/uL (4.1-10.2)
[2016-09-30 09:41] LABS: INTER. NORMALIZED RATIO 2.6; PROTHROMBIN TIME 27.4 (9.2-11.2)
[2016-09-30 10:10] LABS: ALKALINE PHOSPHATASE 134 IU/L (3-129); ANION GAP 9 MEQ/L (2-14); CHLORIDE 101 MEQ/L (99-109); GFR ESTIMATE (CALCULATED) > 59 mL/min/; GLUCOSE 89 mg/dL (70-99); POTASSIUM 4.7 MEQ/L (3.7-5.4); SAMPLE HEMOLYSIS CHECK 0; SAMPLE ICTERIC CHECK 0; SAMPLE LIPEMIA CHECK 0; SODIUM 133 MEQ/L (136-147); TOTAL BILIRUBIN 2.5 MG/DL (0.0-1.0); UREA NITROGEN (BUN) 32 mg/dL (9-23)
[2016-09-30 11:57] LABS: IRON 48 MCG/DL (35-150)
[2016-09-30 12:57] LABS: IMM.RETIC FRACTION 8.9 % (3-19); RETIC HGB EQUIVALENT 35.2 (28-36); RETICULOCYTE COUNT 1.2 % (0.5-1.8)
[2016-09-30 16:20] VITALS: BP 139/89
[2016-10-01 05:23] VITALS: BP 104/62
[2016-10-01 06:18] LABS: INTER. NORMALIZED RATIO 2.7; PROTHROMBIN TIME 28.4 (9.2-11.2)
[2016-10-01 15:58] VITALS: BP 102/72
[2016-10-02 05:37] VITALS: BP 99/53
[2016-10-02 12:20] LABS: HEMATOCRIT 40.1 % (38.0-50.0); MCH 29.1 PG (29.0-34.0); MCHC 33.7 G/DL (30.0-36.0); MCV 86.4 FL (86-99); MEAN PLAT.VOLUME 9.9 uM^3 (9.0-12.4); PLATELET COUNT 151 K/uL (156-360); RBC DIS.WIDTH-CV 16.5 % (11.8-14.6); RBC DIS.WIDTH-SD 51.3 % (39-53); RED BLOOD COUNT 4.64 M/uL (4.00-5.50); WHITE BLOOD COUNT 6.4 K/uL (4.1-10.2)
[2016-10-02 12:45] LABS: ANION GAP 7 MEQ/L (2-14); CHLORIDE 99 MEQ/L (99-109); GFR ESTIMATE (CALCULATED) > 59 mL/min/; GLUCOSE 83 mg/dL (70-99); POTASSIUM 4.4 MEQ/L (3.7-5.4); SAMPLE HEMOLYSIS CHECK 0; SAMPLE ICTERIC CHECK 0; SAMPLE LIPEMIA CHECK 0; SODIUM 133 MEQ/L (136-147); UREA NITROGEN (BUN) 35 mg/dL (9-23)
[2016-10-02 15:41] VITALS: BP 97/68
[2016-10-02 22:18] VITALS: BP 102/58
[2016-10-03 05:02] VITALS: BP 98/54
[2016-10-03 06:53] LABS: INTER. NORMALIZED RATIO 2.4; PROTHROMBIN TIME 25.2 (9.2-11.2)
[2016-10-03 07:08] LABS: ANION GAP 5 MEQ/L (2-14); CHLORIDE 101 MEQ/L (99-109); GFR ESTIMATE (CALCULATED) > 59 mL/min/; GLUCOSE 93 mg/dL (70-99); POTASSIUM 4.4 MEQ/L (3.7-5.4); SAMPLE HEMOLYSIS CHECK 0; SAMPLE ICTERIC CHECK 0; SAMPLE LIPEMIA CHECK 0; SODIUM 134 MEQ/L (136-147); UREA NITROGEN (BUN) 37 mg/dL (9-23)
[2016-10-03 16:00] VITALS: BP 89/60
[2016-10-04 06:11] VITALS: BP 100/64
[2016-10-04 06:47] LABS: INTER. NORMALIZED RATIO 2.6; PROTHROMBIN TIME 27.7 (9.2-11.2)
[2016-10-04 06:58] LABS: ANION GAP 7 MEQ/L (2-14); CHLORIDE 101 MEQ/L (99-109); GFR ESTIMATE (CALCULATED) 57 mL/min/; GLUCOSE 86 mg/dL (70-99); MAGNESIUM 1.9 mg/dl (1.3-2.7); POTASSIUM 3.3 MEQ/L (3.7-5.4); SAMPLE HEMOLYSIS CHECK 1; SAMPLE ICTERIC CHECK 0; SAMPLE LIPEMIA CHECK 0; SODIUM 137 MEQ/L (136-147); UREA NITROGEN (BUN) 37 mg/dL (9-23)
[2016-10-04 21:26] LABS: POINT-OF-CARE METER ID UU14174215
[2016-10-05 05:08] VITALS: BP 106/71
[2016-10-05 07:05] LABS: INTER. NORMALIZED RATIO 2.7; PROTHROMBIN TIME 28.2 (9.2-11.2)
[2016-10-05 07:14] LABS: ANION GAP 11 MEQ/L (2-14); CHLORIDE 98 MEQ/L (99-109); GFR ESTIMATE (CALCULATED) > 59 mL/min/; GLUCOSE 84 mg/dL (70-99); POTASSIUM 3.1 MEQ/L (3.7-5.4); SAMPLE HEMOLYSIS CHECK 0; SAMPLE ICTERIC CHECK 0; SAMPLE LIPEMIA CHECK 0; SODIUM 135 MEQ/L (136-147); UREA NITROGEN (BUN) 37 mg/dL (9-23)
[2016-10-05 15:40] VITALS: BP 99/69
[2016-10-06 04:16] VITALS: BP 96/65
[2016-10-06 06:43] LABS: ANION GAP 8 MEQ/L (2-14); CHLORIDE 98 MEQ/L (99-109); GFR ESTIMATE (CALCULATED) 57 mL/min/; GLUCOSE 91 mg/dL (70-99); POTASSIUM 3.5 MEQ/L (3.7-5.4); SAMPLE HEMOLYSIS CHECK 0; SAMPLE ICTERIC CHECK 0; SAMPLE LIPEMIA CHECK 0; SODIUM 134 MEQ/L (136-147); UREA NITROGEN (BUN) 39 mg/dL (9-23)
[2016-10-06 07:15] LABS: INTER. NORMALIZED RATIO 2.4; PROTHROMBIN TIME 25.4 (9.2-11.2)
[2016-10-06 11:15] VITALS: BP 95/58
[2016-10-06 14:16] LABS: ADD MIUA? YES; BILIRUBIN NEGATIVE; BLOOD MODERATE; COLOR YELLOW ((YELLOW)); GLUCOSE (STRIP) NEGATIVE; KETONES NEGATIVE; LEUKOCYTES NEGATIVE; NITRITE NEGATIVE; PROTEIN (STRIP) NEGATIVE; SPECIFIC GRAVITY 1.011 (1.000-1.030); UROBILINOGEN 0.2 MG/DL (0.2-1.0)
[2016-10-06 14:23] LABS: BACTERIA NONE SEEN /HPF; EPITHELIAL CELLS RARE /HPF; GRANULAR CASTS 0-5 /LPF; HYALINE CASTS 15-20 /LPF; MUCUS TRACE /LPF; RED BLOOD CELLS 0-5 /HPF (0-5); WHITE BLOOD CELLS 0-5 /HPF (0-5)
[2016-10-06 15:00] VITALS: BP 97/57
[2016-10-07 04:30] VITALS: BP 123/76
[2016-10-07 07:13] LABS: ANION GAP 9 MEQ/L (2-14); CHLORIDE 99 MEQ/L (99-109); GFR ESTIMATE (CALCULATED) > 59 mL/min/; GLUCOSE 103 mg/dL (70-99); POTASSIUM 3.9 MEQ/L (3.7-5.4); SAMPLE HEMOLYSIS CHECK 0; SAMPLE ICTERIC CHECK 0; SAMPLE LIPEMIA CHECK 0; SODIUM 136 MEQ/L (136-147); UREA NITROGEN (BUN) 37 mg/dL (9-23)
[2016-10-07 14:30] VITALS: BP 83/59
[2016-10-07 14:59] VITALS: BP 93/50
[2016-10-08 09:35] LABS: HEMATOCRIT 39.2 % (38.0-50.0); MCH 28.1 PG (29.0-34.0); MCHC 32.1 G/DL (30.0-36.0); MCV 87.3 FL (86-99); MEAN PLAT.VOLUME 10.1 uM^3 (9.0-12.4); PLATELET COUNT 119 K/uL (156-360); RBC DIS.WIDTH-CV 16.8 % (11.8-14.6); RBC DIS.WIDTH-SD 52.9 % (39-53); RED BLOOD COUNT 4.49 M/uL (4.00-5.50); WHITE BLOOD COUNT 5.9 K/uL (4.1-10.2)
[2016-10-08 09:44] LABS: INTER. NORMALIZED RATIO 2.8; PROTHROMBIN TIME 29.1 (9.2-11.2)
[2016-10-08 10:04] LABS: ANION GAP 8 MEQ/L (2-14); CHLORIDE 98 MEQ/L (99-109); GFR ESTIMATE (CALCULATED) 57 mL/min/; GLUCOSE 139 mg/dL (70-99); POTASSIUM 4.3 MEQ/L (3.7-5.4); SAMPLE HEMOLYSIS CHECK 0; SAMPLE ICTERIC CHECK 0; SAMPLE LIPEMIA CHECK 0; SODIUM 134 MEQ/L (136-147); UREA NITROGEN (BUN) 36 mg/dL (9-23)
[2016-10-08 14:56] VITALS: BP 96/59
[2016-10-09 04:41] VITALS: BP 118/66
[2016-10-09 12:38] LABS: INTER. NORMALIZED RATIO 2.4; PROTHROMBIN TIME 25.4 (9.2-11.2)
[2016-10-09 15:00] VITALS: BP 86/53
[2016-10-10 05:45] VITALS: BP 91/62
[2016-10-10 07:26] LABS: INTER. NORMALIZED RATIO 2.6; PROTHROMBIN TIME 26.8 (9.2-11.2)
[2016-10-10 07:36] LABS: ANION GAP 7 MEQ/L (2-14); CHLORIDE 101 MEQ/L (99-109); GFR ESTIMATE (CALCULATED) 57 mL/min/; POTASSIUM 4.5 MEQ/L (3.7-5.4); SAMPLE HEMOLYSIS CHECK 0; SAMPLE ICTERIC CHECK 0; SAMPLE LIPEMIA CHECK 0; SODIUM 137 MEQ/L (136-147); UREA NITROGEN (BUN) 42 mg/dL (9-23)
[2016-10-10 07:47] LABS: GLUCOSE 99 mg/dL (70-99)
[2016-10-10 09:40] LABS: HEMATOCRIT 37.5 % (38.0-50.0); MCH 28.9 PG (29.0-34.0); MCHC 33.1 G/DL (30.0-36.0); MCV 87.4 FL (86-99); MEAN PLAT.VOLUME 10.3 uM^3 (9.0-12.4); PLATELET COUNT 112 K/uL (156-360); RBC DIS.WIDTH-SD 54.6 % (39-53); RED BLOOD COUNT 4.29 M/uL (4.00-5.50); WHITE BLOOD COUNT 5.6 K/uL (4.1-10.2)
[2016-10-10 11:52] LABS: ANION GAP 11 MEQ/L (2-14); CHLORIDE 100 MEQ/L (99-109); GFR ESTIMATE (CALCULATED) > 59 mL/min/; GLUCOSE 123 mg/dL (70-99); POTASSIUM 4.4 MEQ/L (3.7-5.4); SAMPLE HEMOLYSIS CHECK 0; SAMPLE ICTERIC CHECK 0; SAMPLE LIPEMIA CHECK 0; SODIUM 135 MEQ/L (136-147); UREA NITROGEN (BUN) 40 mg/dL (9-23)
[2016-10-10 15:33] VITALS: BP 104/59
[2016-10-11 05:00] VITALS: BP 108/63
[2016-10-11 15:16] VITALS: BP 101/60
[2016-10-12 05:36] VITALS: BP 96/68
[2016-10-12 05:58] LABS: HEMATOCRIT 36.3 % (38.0-50.0); MCH 28.3 PG (29.0-34.0); MCHC 32.8 G/DL (30.0-36.0); MCV 86.2 FL (86-99); MEAN PLAT.VOLUME 10.8 uM^3 (9.0-12.4); PLATELET COUNT 115 K/uL (156-360); RBC DIS.WIDTH-CV 16.6 % (11.8-14.6); RBC DIS.WIDTH-SD 52.5 % (39-53); RED BLOOD COUNT 4.21 M/uL (4.00-5.50); WHITE BLOOD COUNT 6.7 K/uL (4.1-10.2)
[2016-10-12 06:21] LABS: VANCOMYCIN, TROUGH 24.2 MCG/ML (10-20)
[2016-10-12 07:34] LABS: ANION GAP 8 MEQ/L (2-14); CHLORIDE 102 MEQ/L (99-109); GFR ESTIMATE (CALCULATED) 57 mL/min/; GLUCOSE 106 mg/dL (70-99); POTASSIUM 4.5 MEQ/L (3.7-5.4); SAMPLE HEMOLYSIS CHECK 0; SAMPLE ICTERIC CHECK 0; SAMPLE LIPEMIA CHECK 0; SODIUM 133 MEQ/L (136-147); UREA NITROGEN (BUN) 44 mg/dL (9-23)
[2016-10-12 09:36] LABS: INTER. NORMALIZED RATIO 2.6; PROTHROMBIN TIME 27.6 (9.2-11.2)
[2016-10-12] MEDS ORDERED: VANCOMYCIN1 GM/150 M IV (14:05)
[2016-10-12] MEDS ORDERED: DUONEB 2.5-0.5 M3 ML AEROSOL (14:06)
[2016-10-12] MEDS ORDERED: MIDODRINE HCL5 MG PO (14:06)
[2016-10-12] MEDS ORDERED: COUMADIN1 MG PO (14:09)
[2016-10-12] MEDS ORDERED: SPIRONOLACTONE25 MG PO (14:10)
[2016-10-12] MEDS ORDERED: GABAPENTIN300 MG PO (14:11)
[2016-10-12] MEDS ORDERED: K-DUR20 MEQ PO (14:11)
[2016-10-12] MEDS ORDERED: GABAPENTIN100 MG PO (14:11)
[2016-10-12] MEDS ORDERED: ADVAIR HFA120 INHAL2 IH (14:12)
[2016-10-12] MEDS ORDERED: HYDROCHLOROTH12.5 M3 PO (14:12)
[2016-10-12] MEDS ORDERED: GUAIFENESIN WI120 M1 PO (14:12)
[2016-10-12] MEDS ORDERED: BUMETANIDE1 MG PO ×2 (14:12)
[2016-10-12] MEDS ORDERED: MONTELUKAST SOD10 MG PO (14:13)
[2016-10-12] MEDS ORDERED: FLORASTOR250 MG PO (14:13)
[2016-10-12] MEDS ORDERED: PREDNISONE20 MG PO (14:13)
[2016-10-12] MEDS ORDERED: ENDOCET 5-3251 EACH PO (14:15)
[2016-10-12 15:03] VITALS: BP 101/69
== END 2016-10-12 16:15 | DRG 945 ==
LOC: 3WEST 10:31
PROVIDERS: Internal Medicine; Internal Medicine Pulmonary Disease; Physical Medicine & Rehabilitation Pain Medicine; Psychiatry & Neurology Neurology
PROC: F07M0ZZ Range of Motion and Joint Mobility Treatment of Musculoskeletal System - Whole Body (ICD-10-PCS; principal; 2016-09-23)
DX: R53.1 Weakness (principal); N17.9 Acute kidney failure, unspecified; J44.0 Chronic obstructive pulmonary disease with (acute) lower respiratory infection; J20.9 Acute bronchitis, unspecified; I13.0 Hypertensive heart and chronic kidney disease with heart failure and stage 1 through stage 4 chronic kidney disease, or unspecified chronic kidney disease; N18.4 Chronic kidney disease, stage 4 (severe); I50.43 Acute on chronic combined systolic (congestive) and diastolic (congestive) heart failure; D69.6 Thrombocytopenia, unspecified; G47.33 Obstructive sleep apnea (adult) (pediatric); G89.29 Other chronic pain; I35.0 Nonrheumatic aortic (valve) stenosis; I42.0 Dilated cardiomyopathy; I48.1 Persistent atrial fibrillation; I48.2 Chronic atrial fibrillation; I87.2 Venous insufficiency (chronic) (peripheral); I87.8 Other specified disorders of veins; I89.0 Lymphedema, not elsewhere classified; I95.89 Other hypotension; J61 Pneumoconiosis due to asbestos and other mineral fibers; R29.6 Repeated falls; M25.561 Pain in right knee; N30.90 Cystitis, unspecified without hematuria; B95.2 Enterococcus as the cause of diseases classified elsewhere; Z91.19 Patient's noncompliance with other medical treatment and regimen; G72.9 Myopathy, unspecified; M51.16 Intervertebral disc disorders with radiculopathy, lumbar region; E66.9 Obesity, unspecified; L03.115 Cellulitis of right lower limb; M16.11 Unilateral primary osteoarthritis, right hip; M16.12 Unilateral primary osteoarthritis, left hip; N25.81 Secondary hyperparathyroidism of renal origin; Z79.01 Long term (current) use of anticoagulants; Z82.49 Family history of ischemic heart disease and other diseases of the circulatory system; Z85.828 Personal history of other malignant neoplasm of skin; Z87.891 Personal history of nicotine dependence; Z91.81 History of falling; Z95.810 Presence of automatic (implantable) cardiac defibrillator; Z96.642 Presence of left artificial hip joint; Z96.653 Presence of artificial knee joint, bilateral
CPT/HCPCS: 71010; 71020; 71030; 71250; 80048; 80048 91; 80053; 80069; 80202; 81003; 82306; 82550; 82553; 82565; 82607; 82746; 82948; 83540; 83735; 84238 90; 84443; 84466; 85025; 85027; 85045; 85610; 87070; 87086; 87205; 94640; 94640 76; 94667; 97110 GO; 97530 GP; 99202; J3370; J7512

== ENCOUNTER 2016-10-19 22:08 | Emergency (ER) | payer OTHER, MEDICARE ==
[~2016-10-19] VITALS: Ht 190.5 cm; Wt 118.5 kg
[~2016-10-19 22:08] MED LIST changes: +ADVAIR HFA120 INHAL2 IH; +FLORASTOR250 MG PO; +GABAPENTIN100 MG PO; +GABAPENTIN300 MG PO; +GUAIFENESIN WI120 M1 PO; +HYDROCHLOROTH12.5 M3 PO; +MONTELUKAST SOD10 MG PO; +PEPCID20 MG PO; +PRAVACHOL80 MG PO; +PREDNISONE20 MG PO; +VANCOMYCIN1 GM/150 M IV
[2016-10-19 23:37] LABS: HEMATOCRIT 39.2 % (38.0-50.0); MCHC 33.2 G/DL (30.0-36.0); MCV 84.5 FL (86-99); MEAN PLAT.VOLUME 9.8 uM^3 (9.0-12.4); PLATELET COUNT 142 K/uL (156-360); RBC DIS.WIDTH-CV 16.5 % (11.8-14.6); RBC DIS.WIDTH-SD 50.8 % (39-53); RED BLOOD COUNT 4.64 M/uL (4.00-5.50); WHITE BLOOD COUNT 9.6 K/uL (4.1-10.2)
[2016-10-20 00:44] LABS: ANION GAP 14 MEQ/L (2-14); CHLORIDE 97 MEQ/L (99-109); GFR ESTIMATE (CALCULATED) 57 mL/min/; GLUCOSE 132 mg/dL (70-99); POTASSIUM 3.7 MEQ/L (3.7-5.4); SAMPLE HEMOLYSIS CHECK 1; SAMPLE ICTERIC CHECK 0; SAMPLE LIPEMIA CHECK 0; SODIUM 136 MEQ/L (136-147); UREA NITROGEN (BUN) 44 mg/dL (9-23)
[2016-10-20 02:28] VITALS: BP 119/91
== END 2016-10-20 02:28 ==
LOC: EME → EDBD 22:08 → EME 22:08
PROVIDERS: Emergency Medicine
DX: N43.3 Hydrocele, unspecified (principal); I50.9 Heart failure, unspecified; I11.0 Hypertensive heart disease with heart failure; F32.9 Major depressive disorder, single episode, unspecified; E78.5 Hyperlipidemia, unspecified; Z96.653 Presence of artificial knee joint, bilateral; Z95.810 Presence of automatic (implantable) cardiac defibrillator; Z87.891 Personal history of nicotine dependence
CPT/HCPCS: 74176; 76870; 80048; 85027; 99281; 99284

== ENCOUNTER 2016-11-28 03:06 | Inpatient (IN) | payer OTHER, MEDICARE ==
[~2016-11-28] VITALS: Ht 190.5 cm; Wt 116.3 kg
[~2016-11-28 03:06] MED LIST changes: -PEPCID20 MG PO; +RANITIDINE HCL150 MG PO
[2016-11-28 04:43] LABS: EOSINOPHIL (%) 3.5 % (0-5); EOSINOPHIL COUNT 0.3 K/uL (0-0.3); HEMATOCRIT 39.3 % (38.0-50.0); IMMATURE GRANULOCYTE (%) 0.4 % (0.0-0.7); INSTRUMENT ABS NEUTROPHIL CT 5.4 K/uL; LYMPHOCYTE COUNT 0.9 K/uL (1.0-2.8); MCH 27.8 PG (29.0-34.0); MCHC 33.1 G/DL (30.0-36.0); MCV 84.2 FL (86-99); MONOCYTE (%) 15.6 % (3-12); MONOCYTE COUNT 1.2 K/uL (0-0.8); NEUTROPHIL (%) 68.6 % (45-76); NEUTROPHIL COUNT 5.4 K/uL (1.8-6.4); PLATELET COUNT 133 K/uL (156-360); RBC DIS.WIDTH-CV 17.2 % (11.8-14.6); RBC DIS.WIDTH-SD 53.4 % (39-53); RED BLOOD COUNT 4.67 M/uL (4.00-5.50); WHITE BLOOD COUNT 7.9 K/uL (4.1-10.2)
[2016-11-28 05:03] LABS: CHLORIDE 96 mEq/L (99-109); POTASSIUM 2.9 mEq/L (3.7-5.4); SODIUM 135 mEq/L (136-147)
[2016-11-28 05:06] LABS: GLUCOSE 122 mg/dL (70-99)
[2016-11-28 05:07] LABS: ANION GAP 13 MEQ/L (2-14)
[2016-11-28 05:08] LABS: TOTAL BILIRUBIN 2.7 mg/dL (0.0-1.0)
[2016-11-28 05:09] LABS: ALKALINE PHOSPHATASE 141 IU/L (3-129); GFR ESTIMATE (CALCULATED) 45 mL/min/
[2016-11-28 05:10] LABS: UREA NITROGEN (BUN) 37 mg/dL (9-23)
[2016-11-28 05:11] LABS: TROP-I INTERPRETATION NEGATIVE; TROPONIN-I 0.12 ng/mL (0.0-0.30)
[2016-11-28 08:11] LABS: ADD MIUA? YES; BILIRUBIN NEGATIVE; BLOOD NEGATIVE; COLOR YELLOW ((YELLOW)); GLUCOSE (STRIP) NEGATIVE; KETONES NEGATIVE; LEUKOCYTES NEGATIVE; NITRITE NEGATIVE; PROTEIN (STRIP) NEGATIVE; SPECIFIC GRAVITY 1.011 (1.000-1.030)
[2016-11-28 08:15] LABS: BACTERIA NONE SEEN /HPF; EPITHELIAL CELLS RARE /HPF; MUCUS TRACE /LPF; RED BLOOD CELLS 0-5 /HPF (0-5); UCUL ADDED? NO; WHITE BLOOD CELLS 0-5 /HPF (0-5)
[2016-11-28 08:44] LABS: INTER. NORMALIZED RATIO 2.1; PROTHROMBIN TIME 23.3 SEC (10.2-12.9)
[2016-11-28 09:15] VITALS: BP 107/67
[2016-11-28] MEDS ORDERED: WARFARIN SODIUM1 MG PO (09:28)
[2016-11-28] MEDS ORDERED: BUMEX2 MG PO (09:29)
[2016-11-28 11:30] VITALS: BP 88/56
[2016-11-28 16:13] VITALS: BP 96/57
[2016-11-28 23:45] VITALS: BP 98/58
[2016-11-29 03:35] VITALS: BP 96/56
[2016-11-29 05:42] LABS: ANION GAP 9 MEQ/L (2-14); CHLORIDE 97 MEQ/L (99-109); GFR ESTIMATE (CALCULATED) 57 mL/min/; GLUCOSE 109 mg/dL (70-99); POTASSIUM 3.2 MEQ/L (3.7-5.4); SAMPLE HEMOLYSIS CHECK 0; SAMPLE ICTERIC CHECK 0; SAMPLE LIPEMIA CHECK 0; SODIUM 135 MEQ/L (136-147); UREA NITROGEN (BUN) 34 mg/dL (9-23)
[2016-11-29 05:47] LABS: INTER. NORMALIZED RATIO 2.2; PROTHROMBIN TIME 25.3 SEC (10.2-12.9)
[2016-11-29 07:26] VITALS: BP 110/70
[2016-11-29 11:16] VITALS: BP 96/72
[2016-11-29 15:30] VITALS: BP 103/63
[2016-11-29 19:00] VITALS: BP 114/76
[2016-11-30] VITALS (7 sets, daily range): BP systolic 92–117; BP diastolic 66–78
[2016-11-30 06:38] LABS: PROTHROMBIN TIME 22.9 SEC (10.2-12.9)
[2016-11-30 06:54] LABS: ANION GAP 6 MEQ/L (2-14); CHLORIDE 95 MEQ/L (99-109); GFR ESTIMATE (CALCULATED) 53 mL/min/; GLUCOSE 95 mg/dL (70-99); SAMPLE HEMOLYSIS CHECK 0; SAMPLE ICTERIC CHECK 0; SAMPLE LIPEMIA CHECK 0; SODIUM 135 MEQ/L (136-147); UREA NITROGEN (BUN) 38 mg/dL (9-23)
[2016-11-30 13:01] LABS: HEMATOCRIT 43.2 % (38.0-50.0); MCH 27.8 PG (29.0-34.0); MCHC 31.7 G/DL (30.0-36.0); MCV 87.6 FL (86-99); MEAN PLAT.VOLUME 10.1 uM^3 (9.0-12.4); PLATELET COUNT 152 K/uL (156-360); RBC DIS.WIDTH-CV 17.6 % (11.8-14.6); RBC DIS.WIDTH-SD 56.1 % (39-53); RED BLOOD COUNT 4.93 M/uL (4.00-5.50); WHITE BLOOD COUNT 8.4 K/uL (4.1-10.2)
[2016-11-30 17:49] LABS: MAGNESIUM 1.9 mg/dl (1.3-2.7); URIC ACID 8.8 mg/dL (3.1-9.2)
[2016-11-30 18:03] LABS: MCH 27.9 PG (29.0-34.0); MCHC 31.9 G/DL (30.0-36.0); MCV 87.5 FL (86-99); MEAN PLAT.VOLUME 9.5 uM^3 (9.0-12.4); PLATELET COUNT 147 K/uL (156-360); RBC DIS.WIDTH-CV 17.5 % (11.8-14.6); RBC DIS.WIDTH-SD 56.7 % (39-53); WHITE BLOOD COUNT 7.2 K/uL (4.1-10.2)
[2016-11-30 22:29] LABS: UR CREATININE CONCENTRATION 53.7 MG/DL
[2016-12-01 04:50] LABS: HEMATOCRIT 41.5 % (38.0-50.0); MCH 28.5 PG (29.0-34.0); MCHC 33.3 G/DL (30.0-36.0); MCV 85.7 FL (86-99); MEAN PLAT.VOLUME 9.8 uM^3 (9.0-12.4); PLATELET COUNT 138 K/uL (156-360); RBC DIS.WIDTH-CV 17.4 % (11.8-14.6); RBC DIS.WIDTH-SD 55.1 % (39-53); RED BLOOD COUNT 4.84 M/uL (4.00-5.50); WHITE BLOOD COUNT 7.9 K/uL (4.1-10.2)
[2016-12-01 04:57] LABS: INTER. NORMALIZED RATIO 2.1; PROTHROMBIN TIME 23.2 SEC (10.2-12.9)
[2016-12-01 05:11] LABS: CHLORIDE 96 mEq/L (99-109); POTASSIUM 4.4 mEq/L (3.7-5.4); SODIUM 135 mEq/L (136-147)
[2016-12-01 05:12] LABS: GLUCOSE 98 mg/dL (70-99)
[2016-12-01 05:13] LABS: CHLORIDE 96 mEq/L (99-109); POTASSIUM 4.2 mEq/L (3.7-5.4); SODIUM 134 mEq/L (136-147)
[2016-12-01 05:14] LABS: ANION GAP 8 MEQ/L (2-14); MAGNESIUM 1.9 mg/dL (1.3-2.7)
[2016-12-01 05:16] LABS: GFR ESTIMATE (CALCULATED) 42 mL/min/; GLUCOSE 99 mg/dL (70-99)
[2016-12-01 05:17] LABS: ANION GAP 9 MEQ/L (2-14); UREA NITROGEN (BUN) 47 mg/dL (9-23)
[2016-12-01 05:19] LABS: GFR ESTIMATE (CALCULATED) 42 mL/min/
[2016-12-01 05:21] LABS: UREA NITROGEN (BUN) 47 mg/dL (9-23)
[2016-12-01 05:22] LABS: URIC ACID 8.8 mg/dL (3.1-9.2)
[2016-12-01 06:37] VITALS: BP 94/68
[2016-12-01 08:00] VITALS: BP 101/78
[2016-12-01 11:22] VITALS: BP 110/78
[2016-12-01 15:05] VITALS: BP 101/74
[2016-12-01 19:07] VITALS: BP 95/67
[2016-12-01 23:38] VITALS: BP 90/66
[2016-12-02 04:49] VITALS: BP 95/62
[2016-12-02 07:36] LABS: EOSINOPHIL (%) 6.1 % (0-5); EOSINOPHIL COUNT 0.5 K/uL (0-0.3); HEMATOCRIT 43.6 % (38.0-50.0); IMMATURE GRANULOCYTE (%) 0.5 % (0.0-0.7); INSTRUMENT ABS NEUTROPHIL CT 4.9 K/uL; LYMPHOCYTE COUNT 1.4 K/uL (1.0-2.8); MCH 27.9 PG (29.0-34.0); MCHC 31.9 G/DL (30.0-36.0); MCV 87.4 FL (86-99); MEAN PLAT.VOLUME 10.1 uM^3 (9.0-12.4); MONOCYTE (%) 17.5 % (3-12); MONOCYTE COUNT 1.5 K/uL (0-0.8); NEUTROPHIL (%) 58.5 % (45-76); NEUTROPHIL COUNT 4.9 K/uL (1.8-6.4); PLATELET COUNT 159 K/uL (156-360); RBC DIS.WIDTH-CV 17.5 % (11.8-14.6); RBC DIS.WIDTH-SD 56.5 % (39-53); RED BLOOD COUNT 4.99 M/uL (4.00-5.50); WHITE BLOOD COUNT 8.4 K/uL (4.1-10.2)
[2016-12-02 07:42] VITALS: BP 100/74
[2016-12-02 07:44] LABS: INTER. NORMALIZED RATIO 2.2; PROTHROMBIN TIME 24.5 SEC (10.2-12.9)
[2016-12-02 08:11] LABS: ANION GAP 4 MEQ/L (2-14); CHLORIDE 93 MEQ/L (99-109); GFR ESTIMATE (CALCULATED) 53 mL/min/; GLUCOSE 96 mg/dL (70-99); POTASSIUM 4.5 MEQ/L (3.7-5.4); SAMPLE HEMOLYSIS CHECK 0; SAMPLE ICTERIC CHECK 0; SAMPLE LIPEMIA CHECK 0; SODIUM 132 MEQ/L (136-147); UREA NITROGEN (BUN) 51 mg/dL (9-23)
[2016-12-02 08:12] LABS: ANION GAP 5 MEQ/L (2-14); CHLORIDE 94 MEQ/L (99-109); GFR ESTIMATE (CALCULATED) 53 mL/min/; GLUCOSE 97 mg/dL (70-99); POTASSIUM 4.3 MEQ/L (3.7-5.4); SAMPLE HEMOLYSIS CHECK 0; SAMPLE ICTERIC CHECK 0; SAMPLE LIPEMIA CHECK 0; SODIUM 132 MEQ/L (136-147); UREA NITROGEN (BUN) 50 mg/dL (9-23)
[2016-12-02 10:45] VITALS: BP 101/69
== END 2016-12-02 13:24 | disposition home health service (06) | DRG 291 ==
LOC: EME → EDBD 03:06 → EME 03:06 → EDOF 07:52 → 4EAST 07:52 → ENRESERV 07:55 → EDOF 08:15 → ENRESERV 08:28 → 4EAST 09:07
PROVIDERS: Emergency Medicine; Hospitalist; Internal Medicine; Internal Medicine Cardiovascular Disease; Internal Medicine Nephrology; Physician Assistant
DX: I13.0 Hypertensive heart and chronic kidney disease with heart failure and stage 1 through stage 4 chronic kidney disease, or unspecified chronic kidney disease (principal); I50.23 Acute on chronic systolic (congestive) heart failure; N18.3 Chronic kidney disease, stage 3 (moderate); N17.9 Acute kidney failure, unspecified; E87.6 Hypokalemia; I95.89 Other hypotension; E87.3 Alkalosis; E86.1 Hypovolemia; T50.2X5A Adverse effect of carbonic-anhydrase inhibitors, benzothiadiazides and other diuretics, initial encounter; I87.2 Venous insufficiency (chronic) (peripheral); L97.919 Non-pressure chronic ulcer of unspecified part of right lower leg with unspecified severity; L97.929 Non-pressure chronic ulcer of unspecified part of left lower leg with unspecified severity; L89.619 Pressure ulcer of right heel, unspecified stage; L89.159 Pressure ulcer of sacral region, unspecified stage; L89.220 Pressure ulcer of left hip, unstageable; S91.101A Unspecified open wound of right great toe without damage to nail, initial encounter; X58.XXXA Exposure to other specified factors, initial encounter; N25.81 Secondary hyperparathyroidism of renal origin; I42.0 Dilated cardiomyopathy; E66.2 Morbid (severe) obesity with alveolar hypoventilation; I27.81 Cor pulmonale (chronic); I08.3 Combined rheumatic disorders of mitral, aortic and tricuspid valves; J44.9 Chronic obstructive pulmonary disease, unspecified; I89.0 Lymphedema, not elsewhere classified; E78.5 Hyperlipidemia, unspecified; I48.2 Chronic atrial fibrillation; F32.9 Major depressive disorder, single episode, unspecified; E88.09 Other disorders of plasma-protein metabolism, not elsewhere classified; Z96.653 Presence of artificial knee joint, bilateral; Z96.649 Presence of unspecified artificial hip joint; Z95.0 Presence of cardiac pacemaker; Z79.01 Long term (current) use of anticoagulants; Z91.11 Patient's noncompliance with dietary regimen; Z87.891 Personal history of nicotine dependence; Z68.31 Body mass index [BMI] 31.0-31.9, adult; Z82.49 Family history of ischemic heart disease and other diseases of the circulatory system; Z85.828 Personal history of other malignant neoplasm of skin; Z91.14 Patient's other noncompliance with medication regimen; Z95.810 Presence of automatic (implantable) cardiac defibrillator; Z88.1 Allergy status to other antibiotic agents
CPT/HCPCS: 71010; 71020; 73522; 73560; 80048; 80048 91; 80053; 80069; 81003; 82570; 83735; 83880; 84156; 84484; 84550; 85025; 85027; 85610; 93005; 97530 GO; 99202; 99281; 99285; A6260; J1940; J2405

== ENCOUNTER 2016-12-16 14:21 | Inpatient (IN) | payer OTHER, MEDICARE ==
[~2016-12-16] VITALS: Ht 190.5 cm; Wt 122.8 kg
[~2016-12-16 14:21] MED LIST changes: +BUMEX2 MG PO
[2016-12-16 15:02] LABS: HEMATOCRIT 41.4 % (38.0-50.0); MCH 28.3 PG (29.0-34.0); MCHC 33.3 G/DL (30.0-36.0); MCV 84.8 FL (86-99); MEAN PLAT.VOLUME 9.4 uM^3 (9.0-12.4); PLATELET COUNT 135 K/uL (156-360); RBC DIS.WIDTH-CV 16.6 % (11.8-14.6); RBC DIS.WIDTH-SD 51.4 % (39-53); RED BLOOD COUNT 4.88 M/uL (4.00-5.50); WHITE BLOOD COUNT 9.8 K/uL (4.1-10.2)
[2016-12-16 15:11] LABS: CHLORIDE 94 mEq/L (99-109); POTASSIUM 3.3 mEq/L (3.7-5.4); SODIUM 134 mEq/L (136-147)
[2016-12-16 15:13] LABS: GLUCOSE 124 mg/dL (70-99)
[2016-12-16 15:14] LABS: ANION GAP 12 MEQ/L (2-14)
[2016-12-16 15:17] LABS: GFR ESTIMATE (CALCULATED) 57 mL/min/
[2016-12-16 15:18] LABS: UREA NITROGEN (BUN) 52 mg/dL (9-23)
[2016-12-16 15:23] LABS: TROP-I INTERPRETATION NEGATIVE; TROPONIN-I 0.14 ng/mL (0.0-0.30)
[2016-12-16 18:31] LABS: INTER. NORMALIZED RATIO 2.6; PROTHROMBIN TIME 30.2 SEC (10.2-12.9)
[2016-12-16 20:13] VITALS: BP 101/57
[2016-12-16] MEDS ORDERED: LASIX40 MG PO (21:22)
[2016-12-16] MEDS ORDERED: ADVAI (21:23)
[2016-12-16 23:28] VITALS: BP 94/66
[2016-12-17 04:02] VITALS: BP 93/67
[2016-12-17 07:36] LABS: HEMATOCRIT 39.6 % (38.0-50.0); MCH 28.9 PG (29.0-34.0); MCHC 33.6 G/DL (30.0-36.0); MCV 86.1 FL (86-99); MEAN PLAT.VOLUME 10.1 uM^3 (9.0-12.4); PLATELET COUNT 137 K/uL (156-360); RBC DIS.WIDTH-CV 16.9 % (11.8-14.6); RBC DIS.WIDTH-SD 52.6 % (39-53); WHITE BLOOD COUNT 7.9 K/uL (4.1-10.2)
[2016-12-17 07:53] VITALS: BP 82/56
[2016-12-17 08:08] LABS: ANION GAP 10 MEQ/L (2-14); CHLORIDE 95 MEQ/L (99-109); GFR ESTIMATE (CALCULATED) 53 mL/min/; GLUCOSE 110 mg/dL (70-99); POTASSIUM 3.2 MEQ/L (3.7-5.4); SAMPLE HEMOLYSIS CHECK 0; SAMPLE ICTERIC CHECK 0; SAMPLE LIPEMIA CHECK 0; SODIUM 132 MEQ/L (136-147); UREA NITROGEN (BUN) 48 mg/dL (9-23)
[2016-12-17 08:09] LABS: PROTHROMBIN TIME 33.9 SEC (10.2-12.9)
[2016-12-17 11:38] VITALS: BP 104/68
[2016-12-17 15:51] VITALS: BP 104/66
[2016-12-17 20:02] VITALS: BP 96/63
[2016-12-17 23:59] VITALS: BP 92/66
[2016-12-18 04:18] VITALS: BP 128/69
[2016-12-18 06:49] LABS: INTER. NORMALIZED RATIO 4.1
[2016-12-18 06:52] LABS: ALKALINE PHOSPHATASE 111 IU/L (3-129); ANION GAP 6 MEQ/L (2-14); CHLORIDE 97 MEQ/L (99-109); GFR ESTIMATE (CALCULATED) 57 mL/min/; GLUCOSE 119 mg/dL (70-99); SAMPLE HEMOLYSIS CHECK 0; SAMPLE ICTERIC CHECK 0; SAMPLE LIPEMIA CHECK 0; SODIUM 129 MEQ/L (136-147); TOTAL BILIRUBIN 2.6 MG/DL (0.0-1.0); UREA NITROGEN (BUN) 50 mg/dL (9-23)
[2016-12-18 06:56] LABS: PROTHROMBIN TIME 47.4 SEC (10.2-12.9)
[2016-12-18 07:30] VITALS: BP 94/71
[2016-12-18 15:47] VITALS: BP 112/76
[2016-12-18 21:25] VITALS: BP 116/76
[2016-12-19 00:52] VITALS: BP 106/68
[2016-12-19 06:21] LABS: INTER. NORMALIZED RATIO 3.8; PROTHROMBIN TIME 44.7 SEC (10.2-12.9)
[2016-12-19 06:33] LABS: ANION GAP 7 MEQ/L (2-14); CHLORIDE 95 MEQ/L (99-109); GFR ESTIMATE (CALCULATED) 53 mL/min/; GLUCOSE 113 mg/dL (70-99); POTASSIUM 4.6 MEQ/L (3.7-5.4); SAMPLE HEMOLYSIS CHECK 0; SAMPLE ICTERIC CHECK 0; SAMPLE LIPEMIA CHECK 0; SODIUM 130 MEQ/L (136-147); UREA NITROGEN (BUN) 52 mg/dL (9-23)
[2016-12-19 06:50] VITALS: BP 110/72
[2016-12-19 15:20] VITALS: BP 105/73
[2016-12-20 00:03] VITALS: BP 96/64
[2016-12-20 06:46] LABS: EOSINOPHIL (%) 4.6 % (0-5); EOSINOPHIL COUNT 0.4 K/uL (0-0.3); HEMATOCRIT 42.2 % (38.0-50.0); IMMATURE GRANULOCYTE (%) 0.4 % (0.0-0.7); INSTRUMENT ABS NEUTROPHIL CT 5.8 K/uL; LYMPHOCYTE COUNT 1.3 K/uL (1.0-2.8); MCH 29.2 PG (29.0-34.0); MCHC 33.9 G/DL (30.0-36.0); MCV 86.3 FL (86-99); MEAN PLAT.VOLUME 9.7 uM^3 (9.0-12.4); MONOCYTE (%) 17.5 % (3-12); MONOCYTE COUNT 1.6 K/uL (0-0.8); NEUTROPHIL (%) 63.1 % (45-76); NEUTROPHIL COUNT 5.8 K/uL (1.8-6.4); PLATELET COUNT 165 K/uL (156-360); RBC DIS.WIDTH-CV 16.6 % (11.8-14.6); RBC DIS.WIDTH-SD 52.7 % (39-53); RED BLOOD COUNT 4.89 M/uL (4.00-5.50); WHITE BLOOD COUNT 9.2 K/uL (4.1-10.2)
[2016-12-20 06:56] LABS: INTER. NORMALIZED RATIO 2.9; PROTHROMBIN TIME 33.8 SEC (10.2-12.9)
[2016-12-20 07:11] LABS: ANION GAP 8 MEQ/L (2-14); CHLORIDE 97 MEQ/L (99-109); GFR ESTIMATE (CALCULATED) 53 mL/min/; GLUCOSE 92 mg/dL (70-99); POTASSIUM 4.6 MEQ/L (3.7-5.4); SAMPLE HEMOLYSIS CHECK 0; SAMPLE ICTERIC CHECK 0; SAMPLE LIPEMIA CHECK 0; SODIUM 131 MEQ/L (136-147); UREA NITROGEN (BUN) 48 mg/dL (9-23)
[2016-12-20 07:23] VITALS: BP 110/78
[2016-12-20 15:30] VITALS: BP 98/78
[2016-12-21 01:17] VITALS: BP 107/59
[2016-12-21 06:58] LABS: EOSINOPHIL (%) 4.8 % (0-5); EOSINOPHIL COUNT 0.4 K/uL (0-0.3); HEMATOCRIT 44.9 % (38.0-50.0); IMMATURE GRANULOCYTE (%) 0.4 % (0.0-0.7); INSTRUMENT ABS NEUTROPHIL CT 5.6 K/uL; MCH 27.2 PG (29.0-34.0); MCHC 31.6 G/DL (30.0-36.0); MEAN PLAT.VOLUME 9.4 uM^3 (9.0-12.4); MONOCYTE (%) 16.3 % (3-12); MONOCYTE COUNT 1.4 K/uL (0-0.8); NEUTROPHIL (%) 66.3 % (45-76); NEUTROPHIL COUNT 5.6 K/uL (1.8-6.4); PLATELET COUNT 175 K/uL (156-360); RBC DIS.WIDTH-CV 16.4 % (11.8-14.6); RBC DIS.WIDTH-SD 51.7 % (39-53); RED BLOOD COUNT 5.22 M/uL (4.00-5.50); WHITE BLOOD COUNT 8.5 K/uL (4.1-10.2)
[2016-12-21 07:03] LABS: INTER. NORMALIZED RATIO 2.6; PROTHROMBIN TIME 29.4 SEC (10.2-12.9)
[2016-12-21 07:05] VITALS: BP 110/61
[2016-12-21 07:21] LABS: ALKALINE PHOSPHATASE 124 IU/L (3-129); ANION GAP 9 MEQ/L (2-14); CHLORIDE 96 MEQ/L (99-109); GFR ESTIMATE (CALCULATED) 57 mL/min/; GLUCOSE 109 mg/dL (70-99); SAMPLE HEMOLYSIS CHECK 0; SAMPLE ICTERIC CHECK 0; SAMPLE LIPEMIA CHECK 0; SODIUM 128 MEQ/L (136-147); TOTAL BILIRUBIN 2.5 MG/DL (0.0-1.0); UREA NITROGEN (BUN) 45 mg/dL (9-23); VANCOMYCIN, TROUGH 18.6 MCG/ML (10-20)
[2016-12-21] MEDS ORDERED: DUONEB 2.5-0.5 M3 ML AEROSOL (14:19)
[2016-12-21] MEDS ORDERED: AMPICILLIN SODIU2 GM IM (14:19)
[2016-12-21] MEDS ORDERED: VANCOMYCIN HCL1 GM IV (14:19)
[2016-12-21 15:49] VITALS: BP 112/64
[2016-12-21 19:33] VITALS: BP 119/70
[2016-12-22 00:42] VITALS: BP 121/72
[2016-12-22 06:45] VITALS: BP 92/52
[2016-12-22] MEDS ORDERED: HYDROXYZINE PAM25 MG PO (08:22)
[2016-12-22] MEDS ORDERED: BACTROBAN OINTM22 GM TP (08:22)
[2016-12-22] MEDS ORDERED: DOCUSATE SODIU100 MG PO (08:22)
[2016-12-22] MEDS ORDERED: ZYVOX600 MG PO (08:22)
[2016-12-22 11:09] LABS: INTER. NORMALIZED RATIO 2.4; PROTHROMBIN TIME 27.5 SEC (10.2-12.9)
[2016-12-22 15:45] VITALS: BP 103/72
[2016-12-23] MEDS ORDERED: GABAPENTIN300 MG PO (17:35)
[2016-12-23] MEDS ORDERED: VITAMIN D32000 UNI1 PO (17:36)
[2016-12-23] MEDS ORDERED: ALDACTONE25 MG PO (17:36)
[2016-12-23] MEDS ORDERED: HYDROCHLOROTH12.5 M3 PO (17:37)
[2016-12-23] MEDS ORDERED: KLOR-CON20 MEQ PO (17:37)
[2016-12-23] MEDS ORDERED: COLACE100 MG PO (17:39)
[2016-12-23] MEDS ORDERED: MIDODRINE HCL5 MG PO (17:40)
[2016-12-23] MEDS ORDERED: ZYVOX600 MG PO (17:40)
== END 2016-12-22 17:31 | disposition home or self-care (01) | DRG 603 ==
LOC: EME 14:21 → 2EAST 17:07 → EDOF 17:07 → ENRESERV 17:11 → 2EAST 19:56 → EDPENDDISDT 12-22 → EDPENDDISTM 12-22 → 2EAST 12-22 17:31
PROVIDERS: Emergency Medicine; Internal Medicine; Nurse Practitioner Adult Health; Pediatrics; Physician Assistant
DX: L03.115 Cellulitis of right lower limb (principal); L89.222 Pressure ulcer of left hip, stage 2; L89.212 Pressure ulcer of right hip, stage 2; L89.322 Pressure ulcer of left buttock, stage 2; L97.821 Non-pressure chronic ulcer of other part of left lower leg limited to breakdown of skin; L97.811 Non-pressure chronic ulcer of other part of right lower leg limited to breakdown of skin; L97.511 Non-pressure chronic ulcer of other part of right foot limited to breakdown of skin; L02.415 Cutaneous abscess of right lower limb; E87.6 Hypokalemia; E87.1 Hypo-osmolality and hyponatremia; I13.0 Hypertensive heart and chronic kidney disease with heart failure and stage 1 through stage 4 chronic kidney disease, or unspecified chronic kidney disease; I50.40 Unspecified combined systolic (congestive) and diastolic (congestive) heart failure; N18.3 Chronic kidney disease, stage 3 (moderate); I48.2 Chronic atrial fibrillation; I42.9 Cardiomyopathy, unspecified; N25.81 Secondary hyperparathyroidism of renal origin; D69.6 Thrombocytopenia, unspecified; J44.9 Chronic obstructive pulmonary disease, unspecified; I87.2 Venous insufficiency (chronic) (peripheral); I87.8 Other specified disorders of veins; E55.9 Vitamin D deficiency, unspecified; G47.33 Obstructive sleep apnea (adult) (pediatric); I89.0 Lymphedema, not elsewhere classified; N50.89 Other specified disorders of the male genital organs; N48.89 Other specified disorders of penis; N44.8 Other noninflammatory disorders of the testis; E78.5 Hyperlipidemia, unspecified; R39.11 Hesitancy of micturition; F32.9 Major depressive disorder, single episode, unspecified; R29.6 Repeated falls; Z96.649 Presence of unspecified artificial hip joint; Z96.653 Presence of artificial knee joint, bilateral; E66.9 Obesity, unspecified; Z68.32 Body mass index [BMI] 32.0-32.9, adult; Z91.19 Patient's noncompliance with other medical treatment and regimen; Z79.01 Long term (current) use of anticoagulants; Z88.1 Allergy status to other antibiotic agents; Z22.322 Carrier or suspected carrier of Methicillin resistant Staphylococcus aureus; Z91.81 History of falling; Z95.810 Presence of automatic (implantable) cardiac defibrillator; Z87.891 Personal history of nicotine dependence; Z85.828 Personal history of other malignant neoplasm of skin; Z82.49 Family history of ischemic heart disease and other diseases of the circulatory system
CPT/HCPCS: 71020; 71275; 73630; 80048; 80053; 80069; 80202; 84484; 85025; 85027; 85610; 87040; 93005; 93971; 94799; 99202; 99281; 99285; J0290; J1940; J2405; J3370; J7040; J7050; Q0177

== ENCOUNTER 2016-12-23 14:28 | Emergency (ER) | payer OTHER, MEDICARE ==
[~2016-12-23] VITALS: Ht 190.5 cm; Wt 126.6 kg
[~2016-12-23 14:28] MED LIST changes: +ADVAI; +AMPICILLIN SODIU2 GM IM; +BACTROBAN OINTM22 GM TP; +HYDROXYZINE PAM25 MG PO; +VANCOMYCIN HCL1 GM IV; +ZYVOX600 MG PO
[2016-12-23 15:03] LABS: HEMATOCRIT 41.7 % (38.0-50.0); MCH 27.7 PG (29.0-34.0); MCHC 32.9 G/DL (30.0-36.0); MCV 84.4 FL (86-99); PLATELET COUNT 165 K/uL (156-360); RBC DIS.WIDTH-CV 16.1 % (11.8-14.6); RED BLOOD COUNT 4.94 M/uL (4.00-5.50); WHITE BLOOD COUNT 10.1 K/uL (4.1-10.2)
[2016-12-23 15:09] LABS: INTER. NORMALIZED RATIO 2.1; PROTHROMBIN TIME 23.7 SEC (10.2-12.9)
[2016-12-23 15:13] LABS: CHLORIDE 98 mEq/L (99-109); POTASSIUM 4.5 mEq/L (3.7-5.4); SODIUM 130 mEq/L (136-147)
[2016-12-23 15:15] LABS: GLUCOSE 101 mg/dL (70-99)
[2016-12-23 15:16] LABS: ANION GAP 9 MEQ/L (2-14)
[2016-12-23 15:19] LABS: GFR ESTIMATE (CALCULATED) 57 mL/min/; UREA NITROGEN (BUN) 44 mg/dL (9-23)
[2016-12-23 15:23] LABS: TROP-I INTERPRETATION NEGATIVE; TROPONIN-I 0.11 ng/mL (0.0-0.30)
[2016-12-23 15:57] LABS: ADD MIUA? YES; BILIRUBIN NEGATIVE; BLOOD NEGATIVE; COLOR YELLOW ((YELLOW)); GLUCOSE (STRIP) NEGATIVE; KETONES NEGATIVE; LEUKOCYTES NEGATIVE; NITRITE NEGATIVE; PROTEIN (STRIP) NEGATIVE; SPECIFIC GRAVITY 1.009 (1.000-1.030)
[2016-12-23 16:08] LABS: BACTERIA RARE /HPF; EPITHELIAL CELLS RARE /HPF; HYALINE CASTS 0-5 /LPF; MUCUS TRACE /LPF; RED BLOOD CELLS 0-5 /HPF (0-5); UCUL ADDED? NO; WHITE BLOOD CELLS 0-5 /HPF (0-5)
[2016-12-23] MEDS ORDERED: GABAPENTIN300 MG PO (17:35)
[2016-12-23] MEDS ORDERED: ALDACTONE25 MG PO (17:36)
[2016-12-23] MEDS ORDERED: VITAMIN D32000 UNI1 PO (17:36)
[2016-12-23] MEDS ORDERED: HYDROCHLOROTH12.5 M3 PO (17:37)
[2016-12-23] MEDS ORDERED: KLOR-CON20 MEQ PO (17:37)
[2016-12-23] MEDS ORDERED: COLACE100 MG PO (17:39)
[2016-12-23] MEDS ORDERED: ZYVOX600 MG PO (17:40)
[2016-12-23] MEDS ORDERED: MIDODRINE HCL5 MG PO (17:40)
[2016-12-23 19:27] VITALS: BP 97/65
== END 2016-12-23 19:49 ==
LOC: EME → EDBD 14:28 → EME 19:49
PROVIDERS: Emergency Medicine
DX: R60.0 Localized edema (principal); N50.89 Other specified disorders of the male genital organs; I11.0 Hypertensive heart disease with heart failure; I50.9 Heart failure, unspecified; E78.5 Hyperlipidemia, unspecified; Z95.0 Presence of cardiac pacemaker; Z96.653 Presence of artificial knee joint, bilateral; Z79.01 Long term (current) use of anticoagulants; Z87.891 Personal history of nicotine dependence
CPT/HCPCS: 71020; 80048; 81003; 83880; 84484; 85027; 85610; 85730; 93005; J1940

== ENCOUNTER 2016-12-30 07:14 | Emergency (ER) | payer OTHER, MEDICARE ==
[~2016-12-30] VITALS: Ht 182.9 cm; Wt 119.8 kg
[~2016-12-30 07:14] MED LIST changes: +COLACE100 MG PO; +KLOR-CON20 MEQ PO; +VITAMIN D32000 UNI1 PO
[2016-12-30 08:57] LABS: EOSINOPHIL (%) 0.1 % (0-5); HEMATOCRIT 46.9 % (38.0-50.0); IMMATURE GRANULOCYTE (%) 1.3 % (0.0-0.7); IMMATURE GRANULOCYTE COUNT 0.3 K/uL; INSTRUMENT ABS NEUTROPHIL CT 20.8 K/uL; LYMPHOCYTE COUNT 0.6 K/uL (1.0-2.8); MCHC 32.6 G/DL (30.0-36.0); MCV 82.9 FL (86-99); MEAN PLAT.VOLUME 8.7 uM^3 (9.0-12.4); MONOCYTE (%) 8.2 % (3-12); MONOCYTE COUNT 1.9 K/uL (0-0.8); NEUTROPHIL (%) 87.9 % (45-76); NEUTROPHIL COUNT 20.8 K/uL (1.8-6.4); PLATELET COUNT 152 K/uL (156-360); RBC DIS.WIDTH-CV 16.5 % (11.8-14.6); RBC DIS.WIDTH-SD 49.2 % (39-53); RED BLOOD COUNT 5.66 M/uL (4.00-5.50); WHITE BLOOD COUNT 23.6 K/uL (4.1-10.2)
[2016-12-30 09:06] LABS: CHLORIDE 96 mEq/L (99-109); POTASSIUM 3.9 mEq/L (3.7-5.4); SODIUM 136 mEq/L (136-147)
[2016-12-30 09:10] LABS: ANION GAP 12 MEQ/L (2-14); TOTAL BILIRUBIN 3.3 mg/dL (0.0-1.0)
[2016-12-30 09:12] LABS: ALKALINE PHOSPHATASE 134 IU/L (3-129); GFR ESTIMATE (CALCULATED) 57 mL/min/
[2016-12-30 09:13] LABS: UREA NITROGEN (BUN) 38 mg/dL (9-23)
[2016-12-30 09:18] LABS: TROP-I INTERPRETATION NEGATIVE; TROPONIN-I 0.13 ng/mL (0.0-0.30)
[2016-12-30 09:25] LABS: GLUCOSE 104 mg/dL (70-99)
[2016-12-30] MEDS ORDERED: MORPHINE S10 MG/1 M3 IM (10:41)
[2016-12-30] MEDS ORDERED: ATIVAN0.5 MG PO (10:41)
[2016-12-30] MEDS ORDERED: MORPHINE S10 MG/5 ML PO (10:48)
[2016-12-30] MEDS ORDERED: SODIUM CHLORIDE1 G1 PO (11:31)
[2016-12-30 13:20] VITALS: BP 81/66
== END 2016-12-30 13:23 | disposition home or self-care (01) ==
LOC: EME 07:14
PROVIDERS: Physician Assistant
DX: A41.9 Sepsis, unspecified organism (principal); S51.812A Laceration without foreign body of left forearm, initial encounter; S41.111A Laceration without foreign body of right upper arm, initial encounter; M16.11 Unilateral primary osteoarthritis, right hip; M16.12 Unilateral primary osteoarthritis, left hip; W18.30XA Fall on same level, unspecified, initial encounter; Y92.193 Bedroom in other specified residential institution as the place of occurrence of the external cause; Z51.5 Encounter for palliative care; I11.0 Hypertensive heart disease with heart failure; I50.9 Heart failure, unspecified; F03.90 Unspecified dementia, unspecified severity, without behavioral disturbance, psychotic disturbance, mood disturbance, and anxiety; E78.5 Hyperlipidemia, unspecified; R56.9 Unspecified convulsions; Z95.0 Presence of cardiac pacemaker; Z96.653 Presence of artificial knee joint, bilateral; Z87.891 Personal history of nicotine dependence
CPT/HCPCS: 71020; 73502; 80053; 81003; 83605; 84484; 85025; 93005; 99281; 99284